=== PATIENT | male | born 1935 | race Caucasian/White ===

== ENCOUNTER 2018-03-29 22:05 | Inpatient (IN) | payer OTHER ==
[~2018-03-29] VITALS: Ht 172.7 cm; Wt 83.6 kg
--- NOTE | 2018-03-29 22:05 | NUR ---
Note harley in [facility] - 03/29/18 at [email or web address] Placed in room 06 . Placed on processes chemical design engineer, blood pressure machine and pulse oximeter. To gown for exam. Side rails up.
--- NOTE | 2018-03-29 22:05 | NUR ---
Placed in room 06 . Placed on miniature set designer, blood pressure machine and pulse oximeter. To gown for exam. Side rails up.
--- NOTE | 2018-03-29 22:06 | NUR ---
Pt GCS 3 BIB ALS from [facility] home s/p c/o altered mental status. Last known well time 2099. Arrived with #18 guage to L FA with 500 NS fluid administering. Was given 2 mg Narcan en route. Pinpoint pupils, skin pink dry and warm. No other injuries/complaints noted.
--- NOTE | 2018-03-29 22:07 | NUR ---
JAMEY Rosenthal at bedside examining patient.
--- NOTE | 2018-03-29 22:10 | NUR ---
# 16 FR Akers catheter with use of sterile technique. Immediate return of 100 cc red tinged urine noted. Bedside drainage bag placed below level of bladder. Urine sample collected and sent to lab. Pt did not respond to painful stimuli. Patient unable to toilet self.
--- NOTE | 2018-03-29 22:10 | NUR ---
# 18 gauge angiocath placed to R FA. Use of asceptic technique. Opsite placed over site. Blood return noted. Blood for lab drawn from site. Flushed with 10 cc of normal saline. No evidence of infiltration noted. Patient tolerated well.
[2018-03-29 22:11] VITALS: BP_SYST 198
--- NOTE | 2018-03-29 22:12 | NUR ---
EKG done at bedside
[2018-03-29] MEDS ORDERED: NS 1000 ML IV.SOLN IV ONE (22:15)
[2018-03-29] MEDS ORDERED: ONDANSETRON HCL 4 MG/2 ML VIAL IVP ONE (22:15)
--- NOTE | 2018-03-29 22:18 | NUR ---
# 16 FR Akers catheter with use of sterile technique. Immediate return of 20 cc red urine noted. Bedside drainage bag placed below level of bladder. Pt tolerated procedure well. Patient unable to toilet self.
--- NOTE | 2018-03-29 22:20 | NUR ---
Pt responding to verbal stimuli, slowly answering questions. AAOx2. Spontaneous eye opening.
[2018-03-29] MEDS ORDERED: COM200 PO (22:23)
[2018-03-29] MEDS ORDERED: FENO145T PO (22:25)
[2018-03-29] MEDS ORDERED: NPH,100V2 SQ (22:26)
--- NOTE | 2018-03-29 22:26 | NUR ---
Pt taken to radiology via gurney on portable registered nurse cardiac. Escorted by Yashira ASHTON.
[2018-03-29] MEDS ORDERED: METF1000 PO (22:28)
[2018-03-29] MEDS ORDERED: LOSA1TAB43 PO (22:28)
[2018-03-29] MEDS ORDERED: OMEG10006 PO (22:29)
[2018-03-29] MEDS ORDERED: OMEP20CA10 PO (22:31)
[2018-03-29] MEDS ORDERED: COLL30OI2 TP (22:32)
[2018-03-29] MEDS ORDERED: ASPI-1155 PO (22:34)
[2018-03-29] MEDS ORDERED: CHOL500013 PO (22:34)
[2018-03-29 22:35] LABS: BASOPHILS % (AUTO) 0.2 % (0.0-2.0); EOSINOPHILS # (AUTO) 0.1 K/uL (0.0-0.4); EOSINOPHILS % (AUTO) 2.5 % (0.0-4.0); HEMATOCRIT 39.9 % (36-54); HEMOGLOBIN 13.5 g/dL (14.0-18.0); LYMPHOCYTES % (AUTO) 34.5 % (20.5-51.5); MEAN CORPUSCULAR HEMOGLOBIN 32 pg (27-31); MEAN CORPUSCULAR HGB CONC 34 % (32-36); MEAN CORPUSCULAR VOLUME 93 fL (79.0-98.0); MONOCYTES # (AUTO) 0.4 K/uL (0.0-1.0); MONOCYTES % (AUTO) 6.1 % (1.7-9.3); NEUTROPHILS # (AUTO) 3.2 K/uL (1.8-7.7); NEUTROPHILS % (AUTO) 56.7 % (40.0-70.0); PLATELET COUNT (AUTO) 150 K/uL (130-430); RED BLOOD CELL COUNT(AUTO) 4.28 MIL/uL (4.2-6.2); RED CELL DISTRIBUTION WIDTH 14.8 % (9.0-15.0); WHITE BLOOD COUNT (AUTO) 5.7 K/uL (4.8-10.8)
--- NOTE | 2018-03-29 22:35 | NUR ---
Medication reconciliation completed with information provided by facility. Any prior medication reconciliation on file was reviewed and corrected.
[2018-03-29] MEDS ORDERED: BETA45CR3 TP (22:36)
[2018-03-29] MEDS ORDERED: CARB-62 PO (22:37)
[2018-03-29] MEDS ORDERED: CELE200C PO (22:38)
[2018-03-29] MEDS ORDERED: MULT-1164 PO (22:39)
[2018-03-29] MEDS ORDERED: DOCU-144 PO (22:40)
[2018-03-29] MEDS ORDERED: POTA-88 PO (22:41)
[2018-03-29 22:44] LABS: ANION GAP 12 (5-15); CALCIUM 9.4 mg/dL (8.4-11.0); CHLORIDE 101 mmol/L (98-107); CREATININE 1.02 mg/dL (0.55-1.30); GLUCOSE 146 mg/dL (70-99); POTASSIUM 3.2 mmol/L (3.5-5.1); SODIUM SERUM 141 mmol/L (136-145); UREA NITROGEN, BLOOD 17 mg/dL (8-21)
[2018-03-29 22:47] LABS: INR 1.1 (0.80-1.20); PROTHROMBIN TIME 10.9 SECS (9.5-12.5)
--- NOTE | 2018-03-29 22:49 | NUR ---
GCS reassessment 15;
[2018-03-29 22:50] LABS: BILIRUBIN,URINE NEGATIVE (NEGATIVE); BLOOD, URINE 3+ (NEGATIVE); CLARITY/URINE SL CLOUDY (CLEAR); COLOR,URINE YELLOW (YELLOW); GLUCOSE,URINE NEGATIVE (NEGATIVE); KETONES,URINE TRACE (NEGATIVE); LEUKOCYTE ESTERASE ,URINE NEGATIVE (NEGATIVE); NITRITE, URINE NEGATIVE (NEGATIVE); PROTEIN URINE NEGATIVE (NEGATIVE)
[2018-03-29 22:52] LABS: BACTERIA,URINE FEW /HPF (None Seen); RBC,URINE >100 /HPF (0-3); WBC,URINE 0-3 /HPF (0-3)
[2018-03-29 22:54] LABS: ALANINE AMINOTRANSFERASE 17 U/L (12-78); ALBUMIN 3.3 g/dL (3.4-4.8); ASPARTATE AMINOTRANSFERASE 28 U/L (10-37); TOTAL BILIRUBIN 0.5 mg/dL (0.0-1.0)
[2018-03-29 22:55] LABS: ACETAMINOPHEN < 1 ug/mL (1-30)
[2018-03-29] MEDS ORDERED: KCL 20 mEq in 100 mL (PREMIX) 100 ML IV ONE (23:00)
[2018-03-29] MEDS ORDERED: hydrALAZINE HCL 20 MG/ML VIAL IVP ONE (23:00)
[2018-03-29 23:02] LABS: BARBITURATE, URINE NEGATIVE (NEG <=200); BENZODIAZEPINE, URINE NEGATIVE (NEG <=150); CANNABINOID, URINE NEGATIVE (NEG <=50); COCAINE, URINE NEGATIVE (NEG <=150); METHAMPHETAMINES SCREEN,URINE NEGATIVE (NEG <=500); OPIATE, URINE NEGATIVE (NEG <=100); PHENCYCLIDINE SCREEN,URINE NEGATIVE (NEG <=25); UR TRICYCLIC ANTIDEPRESSANTS NEGATIVE (NEG <=300); URINE AMPHETAMINE NEGATIVE (NEG <=500); URINE METHADONE NEGATIVE (NEG <=200); URINE OXYCODONE SCREEN NEGATIVE (NEG <=100); URINE PROPOXYPHENE SCREEN NEGATIVE (NEG <=300)
--- NOTE | 2018-03-29 23:08 | NUR ---
Medication administered. Pt tolerated well. No adverse reactions noted.
--- NOTE | 2018-03-29 23:37 | NUR ---
Care endorsed to Grady ASHTON
--- NOTE | 2018-03-29 23:45 | NUR ---
Assumed care of patient, patient resting quietly in no acute distress, vital signs stable, respirations even and unlabored, skin warm and dry to touch. IV fluids infusing without difficulty, no redness or swelling noted at site, Patient remains in sinus rhythm on cafeteria monitor. Awaiting dispo, will continue to observe and assess.
--- NOTE | 2018-03-30 00:15 | NUR ---
Assessment remains unchanged.
[2018-03-30] MEDS ORDERED: INSULIN REGULAR, HUMAN 100 UNITS/ML, 10 ML VIAL (novoLIN R) SUBCUT PRN (00:45)
--- NOTE | 2018-03-30 00:45 | NUR ---
Patient will be admitted to care of Dr Beckwith. Admitted to tele unit. Will go to room 121-A. Belongings list completed. Summary report printed. Report will be given at bedside.
--- NOTE | 2018-03-30 00:49 | NUR ---
Transfer to tele room 121-A via ACLS protocol. Licensed nurse present. IV present no signs or symptoms of infiltration.
--- NOTE | 2018-03-30 00:50 | NUR ---
Emptied 1275 ml of urine from cullen catheter drainage. Patient resting quietly in no acute distress, vital signs stable, respirations even and unlabored.
--- NOTE | 2018-03-30 01:08 | NUR ---
ADMISSION: The patient, LYNDA BAER, 82 y/o, M admitted by LARRY SEYMOUR MD, with the diagnosis of ALOC, Hypokalemia ,was given written information regarding hospital policies, unit procedures and contact persons.
--- NOTE | 2018-03-30 01:15 | NUR ---
Initial Note Patient arrived via gurney per Resource nurse. Patient is awake, alert but forgetful and confused. Knows his birthday but unable to fully express his needs. Reorient to time, place and use of call light. No SOB noted. Denies any pain or n/v at this time. 2 saline locks. Skin intact and no peripheral edema noted. F/C intact and draining well with hernan colored urine. Needs attended. Able to drink water without any coughing. Care and monitoring will be provided. Call light within reach. Bed alarm on and at lowest position at all times. Kept warm and comfortable. Will notify MD of Lactic acid results of 3.1 & 3.2 and high BP. Will recheck BP. NSR on monitor.
[2018-03-30 01:21] VITALS: BP_SYST 165
--- NOTE | 2018-03-30 02:50 | NUR ---
paged Paged Dr. Beckwith, awaiting call back.
[2018-03-30 03:30] VITALS: BP_SYST 153
--- NOTE | 2018-03-30 03:45 | NUR ---
RN Note Patient arousable. No complaints. Rechecked BP 153/78, HR 85. Repositioned. Kept warm and comfortable.
--- NOTE | 2018-03-30 03:55 | NUR ---
PAGED PAGED DOCTOR SEYMOUR.
--- NOTE | 2018-03-30 04:37 | NUR ---
OMAR ESCOBAR PAGED DR. SEYMOUR FOR ORDERS.
--- NOTE | 2018-03-30 04:50 | NUR ---
called back Dr. Beckwith called back with orders made, carried out. Requested IVF, repeat lactic acid and DVT prophylaxis but no orders given. BC x 2 and urine culture was done in ER.
[2018-03-30] MEDS ORDERED: ACETAMINOPHEN 325 MG TABLET PO PRN (05:00)
--- NOTE | 2018-03-30 06:29 | NUR ---
End Note Afebrile. VS stable. Latest BP was 153/78. No complain of pain, SOB or n/v throughout the night. Bedrest but able to help on turning. Saline lock. AM labs today. Latest blood sugar was 100, given crackers per patient's request. Patient remembers that he is in [facility]. F/C intact and draining well. No BM. Repositioned. Follow up DVT prophylaxis and medication reconciliation. Care and monitoring provided per protocol. Call light within reach. Kept warm and comfortable. Bed alarm on and at lowest position at all times. Needs attended. Fall and skin precautions observed. Sinus rhythm with 1st degree AV block on monitor.
[2018-03-30 07:03] LABS: BASOPHILS % (AUTO) 0.3 % (0.0-2.0); EOSINOPHILS # (AUTO) 0.1 K/uL (0.0-0.4); EOSINOPHILS % (AUTO) 1.9 % (0.0-4.0); HEMATOCRIT 38.4 % (36-54); HEMOGLOBIN 12.8 g/dL (14.0-18.0); LYMPHOCYTES # (AUTO) 1.7 K/uL (1.0-5.5); LYMPHOCYTES % (AUTO) 22.5 % (20.5-51.5); MEAN CORPUSCULAR HEMOGLOBIN 31 pg (27-31); MEAN CORPUSCULAR HGB CONC 33 % (32-36); MEAN CORPUSCULAR VOLUME 93 fL (79.0-98.0); MONOCYTES # (AUTO) 0.5 K/uL (0.0-1.0); MONOCYTES % (AUTO) 6.4 % (1.7-9.3); NEUTROPHILS # (AUTO) 5.1 K/uL (1.8-7.7); NEUTROPHILS % (AUTO) 68.9 % (40.0-70.0); PLATELET COUNT (AUTO) 141 K/uL (130-430); RED BLOOD CELL COUNT(AUTO) 4.13 MIL/uL (4.2-6.2); RED CELL DISTRIBUTION WIDTH 14.9 % (9.0-15.0); WHITE BLOOD COUNT (AUTO) 7.4 K/uL (4.8-10.8)
[2018-03-30 07:25] LABS: ANION GAP 7 (5-15); CALCIUM 8.2 mg/dL (8.4-11.0); CHLORIDE 103 mmol/L (98-107); CREATININE 0.62 mg/dL (0.55-1.30); GLUCOSE 83 mg/dL (70-99); SODIUM SERUM 139 mmol/L (136-145); UREA NITROGEN, BLOOD 11 mg/dL (8-21)
[2018-03-30 07:30] LABS: POTASSIUM 2.9 mmol/L (3.5-5.1)
--- NOTE | 2018-03-30 07:32 | NUR ---
Paged DR. Beckwith for critical lab result K 2.9
--- NOTE | 2018-03-30 07:51 | NUR ---
RN OPENING NOTE Report was endorsed by night nurse. Patient is awake and alert with confusion. Patient shows no signs of any distress, breathing is equal and non labored. Patient has all safety precautions in place. Call light is with patient educated to use for assistance but patient is confused. Patient is eating breakfast in bed. Patient is close to nurses station. Patient is stable at this time. Will continue to monitor.
[2018-03-30] MEDS ORDERED: POTASSIUM CHLORIDE 20 MEQ TAB.PRT.SR PO ONE ×2 (08:00→12:15)
[2018-03-30 08:09] VITALS: BP_SYST 138
[2018-03-30] MEDS: CARBIDOPA/LEVODOPA 25/250 MG TABLET PO SCH ×4 (08:50→20:56)
[2018-03-30] MEDS: HYDROCHLOROTHIAZIDE 12.5 MG CAPSULE (HCTZ) PO SCH (08:50)
[2018-03-30] MEDS: LOSARTAN POTASSIUM 50 MG TABLET (COZAAR) PO SCH (08:50)
--- NOTE | 2018-03-30 08:50 | NUR ---
CONSULTATION PAGED/CALLED Reason for Consultation: AMS,PD Person Who was Notified: SPOKE WITH KARISHMA FROM [employer] Consulting Physician: String Cutter Specialty: NEUROLOGY Ordering Physician:
[2018-03-30] MEDS: ASPIRIN 81 MG TAB.CHEW PO SCH (08:51)
[2018-03-30] MEDS: OMEPRAZOLE 20 MG CAPSULE.DR (PriLOSEC) PO SCH (08:51)
[2018-03-30] MEDS: COMTAN 200 MG TAB PO SCH ×4 (08:53→20:57)
[2018-03-30] MEDS ORDERED: NON-FORMULARY MEDICATION (Losartan/Hctz* (Losartan-Hctz 100-12.5 Mg Tab*) 1 EACH) PO SCH (09:00)
--- NOTE | 2018-03-30 10:00 | NUR ---
Notes In bed, resting. family at bedside. denies any pain or chest pain. renal ultrasound just done. turned and repositioned. no distress noted.
--- NOTE | 2018-03-30 10:21 | NUR ---
Nutrition Update Osbaldo Scale 15 noted. Pt admitted for altered mental status, hypokalemia. Diet: [facility] BMI: 28 kg/m2 RD to follow per nutrition care standards.
--- NOTE | 2018-03-30 11:51 | NUR ---
Notes Sitting in the chair at this time, awake and alert. family at bedside. denies any pain or discomfort. no distress noted.
[2018-03-30] MEDS ORDERED: MAGNESIUM OXIDE 400 MG TABLET PO ONE (12:15)
[2018-03-30 12:18] VITALS: BP_SYST 131
--- NOTE | 2018-03-30 14:04 | NUR ---
Notes- Resting in bed, watching tv. denies any pain or discomfort. no distress noted. Able to swallow pills.
--- NOTE | 2018-03-30 15:10 | NUR ---
OSBALDO SCALE EVALUATION: Patient evaluated for a low Osbaldo score of 15. Patient was awake, alert, confused, and received in a Amelia bed. Patient is unable to turn independently. Skin is fair (-); Buttocks (Ischial Tuberosity areas) have blanchable erythema, present on admission. Recommend reposition patient side to side only every 2 hours with pillow support and off-load pressure areas with pillows for pressure re-distribution. Elevate, off-load and float bilateral heels with pillows. Use moisture barrier cream on buttocks and other moisture susceptible areas QID and as needed for soiling. Perform skin care and monitor skin integrity Q shift.
--- NOTE | 2018-03-30 16:16 | NUR ---
Notes Resting in bed, breathing even and unlabored. denies any pain. Able to make needs known. safety precaution observed. will continue to monitor.
[2018-03-30 16:19] VITALS: BP_SYST 149; BP_SYST 158
[2018-03-30] MEDS: INSULIN ASPART 100 UNITS/ML, 10 ML VIAL (NovoLOG) SUBCUT PRN ×2 (17:08→21:05)
--- NOTE | 2018-03-30 17:23 | NUR ---
Notes- Pt refused insulin sliding scale at this time.
--- NOTE | 2018-03-30 18:27 | NUR ---
notes- In bed, just done eating dinner. needs some assistance in feeding. denies any pain or discomfort. no distress noted. safety precaution observed. bed alarm on. will endorse.
--- NOTE | 2018-03-30 19:40 | NUR ---
ROUNDS PATIENT RESTING COMFORTABLY IN BED, NOT IN DISTRESS, VITALS STABLE, DENIES ANY PAIN AND DISCOMFORT AT THIS TIME. ASSESSMENT DONE AND DOCUMENTED. SEE FLOWSHEET. NEEDS ATTENDED TO. TURNED AND REPOSITIONED AND MADE COMFORTABLE. SAFETY AND FALL PRECAUTION MEASURES IN PLACED. BED IN LOW AND LOCKED POSITION. BED ALARM ON. CALL LIGHT PLACED WITHIN REACH.
[2018-03-30] MEDS: DOCUSATE SODIUM 100 MG CAPSULE PO SCH (20:55)
[2018-03-30] MEDS: MAGNESIUM OXIDE 400 MG TABLET PO SCH (20:56)
--- NOTE | 2018-03-30 21:10 | NUR ---
ACCU CHECK ACCU CHECK DONE, BLOOD SUGAR 176 WITH 2 UNITS NOVOLOG GIVEN SUBCU PER SLIDING SCALE. WILL CONTINUE TO MONITOR.
[2018-03-31 00:02] VITALS: BP_SYST 152
--- NOTE | 2018-03-31 00:12 | NUR ---
PATIENT RESTING: Patient resting quietly. No acute distress noted. Vital signs within normal range.
--- NOTE | 2018-03-31 02:15 | NUR ---
ROUNDS PATIENT ASLEEP, NOT IN DISTRESS, VITALS STABLE. WILL CONTINUE TO MONITOR.
--- NOTE | 2018-03-31 04:13 | NUR ---
PATIENT RESTING: Patient resting quietly. No acute distress noted. Vital signs within normal range.
[2018-03-31] MEDS: INSULIN ASPART 100 UNITS/ML, 10 ML VIAL (NovoLOG) SUBCUT PRN ×3 (05:39→18:04)
--- NOTE | 2018-03-31 06:51 | NUR ---
CLOSING NOTES PATIENT AWAKE, VITALS STABLE, NO PAIN AT THIS TIME. ACCU CHECK DONE, BLOOD SUGAR 238 WITH 4 UNITS NOVOLOG GIVEN PER SLIDING SCALE. ALL NEEDS ATTENDED TO. BED ALARM ON. CALL LIGHT PLACED WITHIN REACH.
[2018-03-31 07:07] LABS: ANION GAP 9 (5-15); CHLORIDE 100 mmol/L (98-107); CREATININE 0.77 mg/dL (0.55-1.30); GLUCOSE 195 mg/dL (70-99); SODIUM SERUM 138 mmol/L (136-145); UREA NITROGEN, BLOOD 9 mg/dL (8-21)
[2018-03-31 07:57] LABS: POTASSIUM 2.9 mmol/L (3.5-5.1)
--- NOTE | 2018-03-31 08:15 | NUR ---
INITIAL ROUNDS Received pt AAOx3, mumrock with his speech. Pt with no s/s resp distress, no c/o pain or discomfort. HOB elevated for aspiration precautions. Plan of care for the day reviewed with pt-pt stated okay, then that he wanted to go home today. Pain management, skin and safety discussed-pt just stated okay-reinforce all teachings. Pt repositioned with pillow support an heels off-loaded. Side rails up x3, bed alarm on, call light within reach.
[2018-03-31] MEDS ORDERED: POTASSIUM CHLORIDE 40 MEQ, LIDOCAINE JECT 2% PF 100 MG 50 MG in NS 250 ML IV ONE (08:45)
[2018-03-31 09:05] VITALS: BP_SYST 155
[2018-03-31] MEDS: CARBIDOPA/LEVODOPA 25/250 MG TABLET PO SCH ×4 (10:25→20:43)
[2018-03-31] MEDS: OMEPRAZOLE 20 MG CAPSULE.DR (PriLOSEC) PO SCH (10:28)
[2018-03-31] MEDS: LOSARTAN POTASSIUM 50 MG TABLET (COZAAR) PO SCH (10:29)
[2018-03-31] MEDS: ASPIRIN 81 MG TAB.CHEW PO SCH (10:30)
[2018-03-31] MEDS: MAGNESIUM OXIDE 400 MG TABLET PO SCH ×2 (10:30→20:43)
[2018-03-31] MEDS: HYDROCHLOROTHIAZIDE 12.5 MG CAPSULE (HCTZ) PO SCH (10:30)
[2018-03-31] MEDS: COMTAN 200 MG TAB PO SCH ×4 (10:31→21:30)
--- NOTE | 2018-03-31 10:35 | NUR ---
ROUNDS Pt assisted to bedside commode with 2 person assist-pt very stiff. Pt did not have a bowel movement and assisted back into bed. Cream applied to perineal area due to redness. No s/s resp distress, no c/o pain or discomfort. Family at bedside. All precautions remain in place. Call light within reach.
[2018-03-31 11:30] VITALS: BP_SYST 165
--- NOTE | 2018-03-31 12:09 | NUR ---
Case mgt: Met w/pt and dtr-in-law My at bedside-pt oriented to person, place-slightly cpfvxnxz-fuvgduh-qdyzbkj-c/o bladder discomfort (hematuria noted in cullen)-Lives at [facility]-uses w/c there and has assistance for ADLs.Has hospital bed,w/c & lift chair at [place]. My or Ab will take pt back to [place] upon dc--I explained in the event pt requires SNF instead of AL temporarily, we would need to see if [facility] is contracted with [facility] insurance, as pt possibly could need SNF elsewhere if [facility] not contracted with insurance. Explained case mgt will f/u for dc planning needs. Nurse Iris is aware of pt's c/o bladder discomfort and blood clots noted at proximal area of cullen catheter. YASMEEN ASHTON
--- NOTE | 2018-03-31 12:19 | NUR ---
ROUNDS Pt repositioned with pillow support and heels off-loaded for skin care. Pt with no s/s resp distress, no c/o pain or discomfort. K-Marcelino infusing well to left arm at ordered rate with no s/s infiltration to site. Pt's family at bedside. All precautions remain in place. Call light within reach.
[2018-03-31] MEDS ORDERED: LEVOFLOXACIN 500 MG/D5W 100 ML IV ONE (14:30)
--- NOTE | 2018-03-31 14:30 | NUR ---
ROUNDS/MD Rounded with Dr. Nettles to see pt-MD discussed plan of care with pt and pt's family. MD to place new orders for antibiotics, labs. Pt with no c/o pain or discomfort. K-rider completed. All precautions remain in place. Call light within reach. Addendum: 03/31/18 at 1710 by Iris Reyes RN Dr. Nettles informed/shown small blood clots in pt's cullen-stated he will order fluids, antibiotics, and a Urinary consult.
[2018-03-31] MEDS ORDERED: cefTRIAXone 1 GM in D5W 50 ML IV ONE (14:45)
[2018-03-31] MEDS ORDERED: POTASSIUM CHLORIDE 20 MEQ TAB.PRT.SR PO ONE (14:45)
[2018-03-31] MEDS: LR 1,000 ML IV SCH (16:03)
[2018-03-31 16:13] VITALS: BP_SYST 176
--- NOTE | 2018-03-31 16:45 | NUR ---
ROUNDS Pt assisted with 2 person assist to the bedside commode. No c/o pain, no s/s resp distress. sequencing machine operator at bedside. call light within reach.
--- NOTE | 2018-03-31 17:15 | NUR ---
CONSULTATION PAGED/CALLED Reason for Consultation: HEMATURIA Person Who was Notified: SPOKE WITH CONCHA FROM [employer] Consulting Physician: Hydraulics Teacher Specialty: UROLOGY Ordering Physician: DR TELLES
--- NOTE | 2018-03-31 19:01 | NUR ---
CLOSING NOTE Pt resting quietly in bed with no s/s resp distress, no c/o pain or discomfort. IVF infusing well to Left arm at ordered rate with no s/s infiltration to site. Akers draining to gravity with small blood clots and light red urine. Spopke with Dr. Cuevas-he will see pt in the morning-family and pt aware. Needs met. All precautions remain in place. Call light within reach.
--- NOTE | 2018-03-31 19:30 | NUR ---
ROUNDS PATIENT IN BED, AWAKE, ALERT, CONFUSED, NOT IN DISTRESS, VITALS STABLE. NO SIGNS OF ANY PAIN AT THIS TIME. ASSESSMENT DONE AND DOCUMENTED. SEE FLOWSHEET. NEEDS ATTENDED TO. SAFETY AND FALL PRECAUTION MEASURES IN PLACED. BED ALARM ON. CALL LIGHT PLACED WITHIN REACH.
[2018-03-31] MEDS: DOCUSATE SODIUM 100 MG CAPSULE PO SCH (20:43)
--- NOTE | 2018-03-31 21:13 | NUR ---
MEDICATION DUE MEDICATIONS GIVEN SCHEDULED, TOLERATED WELL. WILL CONTINUE TO MONITOR.
[2018-03-31] MEDS: POTASSIUM CHLORIDE 20 MEQ TAB.PRT.SR PO SCH (21:29)
[2018-03-31 23:56] VITALS: BP_SYST 129
--- NOTE | 2018-04-01 01:20 | NUR ---
DR. SEYMOUR PAGED AND TALKED TO DR. SEYMOUR, PATIENT AGITATED AND PULLING OUT HIS IV LINES AND ATTEMPTING TO PULL HIS VOGEL CATHETER. NEW ORDER FOR ATIVAN 0.5 MG IV GIVEN X1. WILL CONTINUE TO MONITOR.
[2018-04-01] MEDS ORDERED: LORazepam 2 MG/ML VIAL IVP SCH (01:45)
--- NOTE | 2018-04-01 04:12 | NUR ---
PATIENT RESTING: Patient resting quietly. No acute distress noted. Vital signs within normal range.
[2018-04-01] MEDS: INSULIN ASPART 100 UNITS/ML, 10 ML VIAL (NovoLOG) SUBCUT PRN ×2 (05:47→17:24)
--- NOTE | 2018-04-01 06:50 | NUR ---
CLOSING NOTES PATIENT ASLEEP, VITALS STABLE, NO PAIN AND DISCOMFORT NOTED. ALL NEEDS ATTENDED TO. SAFETY MEASURES MAINTAINED. CALL LIGHT PLACED WITHIN REACH.
--- NOTE | 2018-04-01 07:17 | NUR ---
OPENING NOTE: MORNING REPORT WAS TAKEN FROM POWER ENGINEER NURSE AT BEDSIDE. PATIENT IS RESTING IN BED. IV FLUIDS ARE INFUSING. PATIENT ON ROOM AIR. VOGEL HANGING TO GRAVITY. BED ALARM IS ON AND SIDE RAILS ARE UP. CALL LIGHT IS IN REACH AND BED IN LOWEST POSITION. WILL CONTINUE TO MONITOR.
[2018-04-01 07:29] LABS: BASOPHILS # (AUTO) 0.1 K/uL (0.0-0.2); EOSINOPHILS # (AUTO) 0.1 K/uL (0.0-0.4); EOSINOPHILS % (AUTO) 1.7 % (0.0-4.0); HEMATOCRIT 39.2 % (36-54); HEMOGLOBIN 13.1 g/dL (14.0-18.0); LYMPHOCYTES # (AUTO) 1.4 K/uL (1.0-5.5); LYMPHOCYTES % (AUTO) 19.3 % (20.5-51.5); MEAN CORPUSCULAR HEMOGLOBIN 31 pg (27-31); MEAN CORPUSCULAR HGB CONC 33 % (32-36); MEAN CORPUSCULAR VOLUME 92 fL (79.0-98.0); MONOCYTES # (AUTO) 0.5 K/uL (0.0-1.0); MONOCYTES % (AUTO) 6.2 % (1.7-9.3); NEUTROPHILS # (AUTO) 5.4 K/uL (1.8-7.7); NEUTROPHILS % (AUTO) 71.8 % (40.0-70.0); PLATELET COUNT (AUTO) 143 K/uL (130-430); RED BLOOD CELL COUNT(AUTO) 4.25 MIL/uL (4.2-6.2); RED CELL DISTRIBUTION WIDTH 14.9 % (9.0-15.0); WHITE BLOOD COUNT (AUTO) 7.5 K/uL (4.8-10.8)
[2018-04-01 07:35] LABS: ANION GAP 7 (5-15); CHLORIDE 105 mmol/L (98-107); CREATININE 0.82 mg/dL (0.55-1.30); GLUCOSE 157 mg/dL (70-99); POTASSIUM 3.3 mmol/L (3.5-5.1); SODIUM SERUM 142 mmol/L (136-145); UREA NITROGEN, BLOOD 10 mg/dL (8-21)
[2018-04-01 08:30] VITALS: BP_SYST 110
[2018-04-01] MEDS: COMTAN 200 MG TAB PO SCH ×4 (09:00→22:08)
[2018-04-01] MEDS: POTASSIUM CHLORIDE 20 MEQ TAB.PRT.SR PO SCH ×2 (09:00→22:05)
[2018-04-01] MEDS: LOSARTAN POTASSIUM 50 MG TABLET (COZAAR) PO SCH (09:00)
[2018-04-01] MEDS ORDERED: POTASSIUM CHLORIDE 20 MEQ TAB.PRT.SR PO ONE (09:00)
[2018-04-01] MEDS: HYDROCHLOROTHIAZIDE 12.5 MG CAPSULE (HCTZ) PO SCH (09:00)
[2018-04-01] MEDS: CARBIDOPA/LEVODOPA 25/250 MG TABLET PO SCH ×4 (09:00→22:05)
[2018-04-01] MEDS: MAGNESIUM OXIDE 400 MG TABLET PO SCH ×2 (09:00→22:05)
[2018-04-01] MEDS: OMEPRAZOLE 20 MG CAPSULE.DR (PriLOSEC) PO SCH (09:00)
[2018-04-01] MEDS: ASPIRIN 81 MG TAB.CHEW PO SCH (09:00)
[2018-04-01] MEDS: LR 1,000 ML IV SCH ×2 (09:45→23:41)
[2018-04-01] MEDS: cefTRIAXone 1 GM in D5W 50 ML IV SCH (09:46)
--- NOTE | 2018-04-01 09:50 | NUR ---
MORNING MEDS: PATIENT LETHARGIC. PATIENT OPENS EYES FOR A BIT THEN CLOSES THEM. NOT SAFE TO GIVE PATIENT PO MEDS. FLUIDS ARE INFUSING AND CALL LIGHT IS IN REACH. WILL CONTINUE TO MONITOR.
--- NOTE | 2018-04-01 11:25 | NUR ---
BLOOD SUGAR: PATIENT LAYING IN BED WITH NO SIGNS OF DISTRESS. PATIENT STILL LETHARGIC. PATIENT OPENS EYES THEN GOES BACK TO SLEEP. SUGAR WAS TAKEN AND WAS 144. NO INSULIN NEEDED TO COVER. CALL LIGHT IS IN REACH. WILL CONTINUE TO MONITOR.
--- NOTE | 2018-04-01 12:29 | NUR ---
MD: DR SEYMOUR CAME TO SEE PATIENT. PATIENT STILL LETHARGIC. DR AWARE THAT NOT ABLE TO GIVE MORNING MEDS. WILL CONTINUE TO MONITOR.
[2018-04-01] MEDS ORDERED: POTASSIUM CHLORIDE 30 MEQ in NS 250 ML IV ONE (12:30)
[2018-04-01 12:47] VITALS: BP_SYST 140
--- NOTE | 2018-04-01 13:14 | NUR ---
: DR SEYMOUR CALLED TO CLARIFY DISCHARGE PLANNING ORDER. SAID THEY WILL SEE TOMORROW HOW PATIENT DOES WITH PT AND DECIDED IF PATIENT TO GO BACK TO ASSISTED LIVING OR SNF.
--- NOTE | 2018-04-01 13:15 | NUR ---
DC planning: Rec'd order for transfer to SNF in am-Nurse Portillo is checking w/Dr. Beckwith to confirm level of care for AL vs. SNF-Pt is more lethargic today and still has cullen-urology consult pending--urine is clear hernan today--I am faxing snf referral packet to [facility] fax#[phone] and made nurse Lindsey aware I am faxing SNF referral. YASMEEN RN
--- NOTE | 2018-04-01 14:44 | NUR ---
NOTE: PATIENT MORE AWAKE. FAMILY AT BEDSIDE FEEDING PATIENT LUNCH. GAVE PATIENT SCHEDULED MEDICATIONS. PATIENT SWALLOWED WITH OUT DIFFICULTIES. ALL NEEDS MET. CALL LIGHT IS IN REACH. WILL CONTINUE TO MONITOR.
--- NOTE | 2018-04-01 15:44 | NUR ---
URINE SENT FOR CYTOLOGY
[2018-04-01 16:44] VITALS: BP_SYST 149
--- NOTE | 2018-04-01 17:28 | NUR ---
NOTE: BLOOD SUGAR WAS TAKEN AND WAS 162. INSULIN GIVEN TO COVER. PATIENT LETHARGIC BUT OPENS EYES TO VOICE. FAMILY SAID TO GIVE PO MEDS LATER WITH DINNER. WILL CONTINUE TO MONITOR. CALL LIGHT IS IN REACH.
--- NOTE | 2018-04-01 18:22 | NUR ---
CLOSING NOTE: PATIENT LAYING IN BED RESTING WITH EYES CLOSED WITH NO SIGNS OF DISTRESS. PATIENT ON ROOM AIR. FLUIDS ARE INFUSING. PATIENT OPENED EYES TO VOICE. PATIENT ATE SOME DINNER. GAVE SCHEDULED MEDICATIONS. PATIENT SWALLOWED WITH OUT DIFFICULTIES. VISITOR AT BEDSIDE. BED ALARM IS ON AND CALL LIGHT IS IN REACH. WILL CONTINUE TO MONITOR AND GIVE REPORT TO MANAGER MEMBERSHIP NURSE.
[2018-04-01 19:00] VITALS: BP_SYST 161
[2018-04-01 20:00] VITALS: BP_SYST 161
[2018-04-01] MEDS: DOCUSATE SODIUM 100 MG CAPSULE PO SCH (22:04)
[2018-04-01] MEDS: cloNIDine HCL 0.1 MG TABLET PO PRN (22:15)
[2018-04-02 00:09] VITALS: BP_SYST 172
[2018-04-02 01:00] VITALS: BP_SYST 153
[2018-04-02] MEDS: LR 1,000 ML IV SCH (06:09)
[2018-04-02 06:20] LABS: ANION GAP 9 (5-15); CALCIUM 8.8 mg/dL (8.4-11.0); CHLORIDE 107 mmol/L (98-107); CREATININE 0.86 mg/dL (0.55-1.30); GLUCOSE 182 mg/dL (70-99); POTASSIUM 3.6 mmol/L (3.5-5.1); SODIUM SERUM 144 mmol/L (136-145); UREA NITROGEN, BLOOD 13 mg/dL (8-21)
--- NOTE | 2018-04-02 06:45 | NUR ---
pt.had presented challenges;w/in the shift.pt.presents hx;medical;parkinson's dx.advanced.pt.presents general weakness upper/lower extremities.pt.presents cullen catheter;hematuria presents.;urology was consulted . had assessed the pt:04/01/18. had written that the pt.should f/u w/ cystoscopy as a n out/pt.pt.presents diabetic hx.i have assessed the blood glucose x2 w/in the shift,.pt.had requested snacks throughout the shift.i fed the pt.3-5x's w/in the shift.pt.was assessed for cleanliness.pt.was re-positioned q-2hrs.water provided.no c/o pain,nausea.pt.had attempted to pull the cullen catheter. pt.reminded of the indication for the cullen catheter.
--- NOTE | 2018-04-02 07:40 | NUR ---
RN opening note report was endorsed by night nurse at bed side. Patient is awake and alert sitting in chair next to bed. Patient has no complaints at this time. Patients breathing is equal and non labored. Patient has all safety precautions in place. Patient educated immigration case manager light for assistance. Patient is NPO for abdominal U/S , spoke with radiology will be doing U/S in 20 min. Patient has no other needs at this time. will continue to monitor.
[2018-04-02 08:10] VITALS: BP_SYST 171
[2018-04-02] MEDS: cefTRIAXone 1 GM in D5W 50 ML IV SCH (08:15)
[2018-04-02] MEDS: HYDROCHLOROTHIAZIDE 12.5 MG CAPSULE (HCTZ) PO SCH (08:16)
[2018-04-02] MEDS: ASPIRIN 81 MG TAB.CHEW PO SCH (08:16)
[2018-04-02] MEDS: POTASSIUM CHLORIDE 20 MEQ TAB.PRT.SR PO SCH (08:16)
[2018-04-02] MEDS: MAGNESIUM OXIDE 400 MG TABLET PO SCH (08:17)
[2018-04-02] MEDS: COMTAN 200 MG TAB PO SCH ×3 (08:17→17:41)
[2018-04-02] MEDS: OMEPRAZOLE 20 MG CAPSULE.DR (PriLOSEC) PO SCH (08:17)
[2018-04-02] MEDS: LOSARTAN POTASSIUM 50 MG TABLET (COZAAR) PO SCH (08:17)
[2018-04-02] MEDS: CARBIDOPA/LEVODOPA 25/250 MG TABLET PO SCH ×3 (08:51→17:40)
--- NOTE | 2018-04-02 09:30 | NUR ---
rn ROUNDING/BP Patient is awake and alert. laying in bed no signs of any distress, breathing is equal and non labored. Patient Akers catheter bag is leaking changed bag to a new one. Patient grant no complaints of any pain at this time. Patients bp has decreased will continue to monitor. Patient is close to nurses station. no other needs at this time. will continue to monitor.
--- NOTE | 2018-04-02 11:06 | NUR ---
Discharge Planning: DCP followed up on referral to [facility] (f [phone] p [phone]); Mercedes stated she will get authorization from insurance and call with a bed. DIMPLEP to follow up. Addendum: 04/02/18 at 1351 by Briana Pierre DP Mercedes at [facility] (f [phone] p [phone]) pt accepted to 110. Addendum: 04/02/18 at 1356 by Briana Pierre DP DEBBIE made nurse aware of pt being accepted to [facility] (f [phone] p [phone]). Addendum: 04/02/18 at 1512 by Briana Pierre DP DIMPLE laverne [facility] ([phone]) Km to [facility] (f [phone] p [phone]) RM 110
[2018-04-02 11:31] VITALS: BP_SYST 160
--- NOTE | 2018-04-02 11:55 | NUR ---
consent/contrast administration questionnaire Patients daughter in law at bed side.able to get informed consent from her. She has no further questions regarding consent. Patient is awake and alert. Patient has no complaints at this time. All safety precautions are in place. Patient is close to nurses station. Spoke with Radiology will be doing CT at after lunch ok to give insulin and lunch now. Patient and family member made aware. no further questions
[2018-04-02] MEDS: INSULIN ASPART 100 UNITS/ML, 10 ML VIAL (NovoLOG) SUBCUT PRN ×2 (12:26→17:46)
--- NOTE | 2018-04-02 13:30 | NUR ---
rn erica Patient moved to 121 [address] Bed. Daughter in law is still at bed side. Patient is awake and alert, no signs of any distress, breathing is equal and non labored. Patient has all safety precautions in place. Educated family and patient sunday school missionary light for assistance. Patient has no complaints at this time. Patient is stable. Patient is close to nurses station. will continue to monitor.
[2018-04-02] MEDS ORDERED: IOHEXOL 100 ML IV ONE (14:17)
--- NOTE | 2018-04-02 15:30 | NUR ---
RN ROUNDING PATIENT IS AWAKE AND ALERT, LAYING IN BED NO SIGNS OF ANY DISTRESS, BREATHING IS EQUAL AND NON LABORED. PATIENT HAS ALL SAFETY PRECAUTIONS IN PLACE. PATIENT IS CLOSE TO NURSES STATION. PATIENT HAS NO OTHER NEEDS AT THIS TIME. WILL CONTINUE TO MONITOR.
[2018-04-02 15:57] VITALS: BP_SYST 161
--- NOTE | 2018-04-02 17:55 | NUR ---
MEDICATION PATIENTS SCHEDULE MEDICATION DONE PER ORDER. PATIENTS ACCU CHECK DONE COVERAGE GIVEN ORDERED. PATIENT IS EATING DINNER. DAUGHTER IN LAW IS AT BED SIDE. PATIENT TOLERATED MEDICATION WELL. BOTH PATIENT AND DAUGHTER IN LAW ARE AWARE OF TRANSFER BACK TO [place]. PATIENT HAS NO COMPLAINTS AT THIS TIME. PATIENT IS STABLE BREATHING IS EQUAL AN NON LABORED. PATIENT HAS NO OTHER NEEDS. PATIENT IS CLOSE TO NURSES STATION. WILL CONTINUE TO MONITOR.
[2018-04-02] MEDS: cloNIDine HCL 0.1 MG TABLET PO PRN (18:34)
--- NOTE | 2018-04-02 18:49 | NUR ---
rn closing note Report to be endorsed to night nurse at bed side. Patients blood pressure slightly elevated at 161/91 medicated per order. Patient tolerated well. patient has all safety precautions in place. Close to nurses station. Patient daughter in law with patient. Patient shows no signs of any distress, breathing is equal and non labored. no other needs at this time.
--- NOTE | 2018-04-02 19:45 | NUR ---
COMMUNICATION WITH FAMILY DAUGHTER IN LAW, KELLI IS AT BEDSIDE AT THIS TIME AND HAS SIGNED AND GIVEN CONSENT FOR PATIENT'S TRANSFER [facility] TO [facility] SINCE PATIENT IS CONFUSED. SHE VERBALIZES THAT SHE WILL TAKE ALL THE PATIENT'S BELONGINGS HOME WITH HER.
--- NOTE | 2018-04-02 19:58 | NUR ---
COMMUNICATION WITH [facility] NURSE REPORT GIVEN AT THIS TIME TO RN, BABATUNDE WHO WILL BE RECEIVING PATIENT IN ROOM 133. SHE VERBALIZES THAT THEY ARE READY TO RECEIVE PATIENT, AMBULANCE ETA IS GIVEN TO HER. RN ALSO PROVIDED WITH EMERGENCY CONTACT INFORMATION FOR PATIENT (KELLI, DAUGHTER IN LAW).
--- NOTE | 2018-04-02 20:38 | NUR ---
DISCHARGE NOTE PATIENT IS DISCHARGED AT THIS THIS TIME VIA GURNEY VIA [facility] BY EMT TRUPTI AND ANOTHER EMT. DAUGHTER IN LAW KELLI AND SON JAY JAY ARE AT BEDSIDE, THEY WILL BE TAKING HIS BELONGINGS WITH THEM HOME. PATIENT'S HOSPITAL WRIST BAND IS REMOVED, HE IS GIVEN A BLANK WRISTBAND WITH HIS NAME AND WRITTEN. PATIENT'S IV IS D/C, TIP INTACT, NO SIGNS OF ACTIVE BLEED. DISCHARGE PACKET HAS BEEN SIGNED AND DAUGHTER IN LAW KELLI HAS SIGNED AND GIVEN CONSENT FOR DISCHARGE. HE IS STABLE, NO SIGNS OF RESPIRATORY DISCHARGE. ALL NEEDS MET.
== END 2018-04-02 18:39 | DRG 640 ==
LOC: SED 22:05 → STU 03-30 00:33 → SMU 04-01 16:38
PROVIDERS: ADMIT Internal Medicine; ATTEND Internal Medicine
DX: E87.6 Hypokalemia (principal); G93.41 Metabolic encephalopathy; G45.9 Transient cerebral ischemic attack, unspecified; R31.0 Gross hematuria; E11.65 Type 2 diabetes mellitus with hyperglycemia; E78.5 Hyperlipidemia, unspecified; I10 Essential (primary) hypertension; R55 Syncope and collapse; E86.0 Dehydration; G20 Parkinson's disease; Z96.643 Presence of artificial hip joint, bilateral; F02.80 Dementia in other diseases classified elsewhere, unspecified severity, without behavioral disturbance, psychotic disturbance, mood disturbance, and anxiety; G30.9 Alzheimer's disease, unspecified; K21.9 Gastro-esophageal reflux disease without esophagitis; T42.4X5A Adverse effect of benzodiazepines, initial encounter; Z79.899 Other long term (current) drug therapy; Z85.46 Personal history of malignant neoplasm of prostate; Z79.82 Long term (current) use of aspirin; Y92.89 Other specified places as the place of occurrence of the external cause
CPT/HCPCS: 36415; 36600; 70450-TC; 71045; 76770; 80048; 80053; 80307; 81000-TC; 82550-TC; 82803-TC; 82962; 83605; 83735-TC; 83880; 84443-TC; 84484; 85025; 85610-TC; 85730-TC; 87040-TC; 87081; 87086; 88108; 88305; 93005; 96361; 96365; 96375; 97110-GP; 97530-GP; 99285; G0378; G0480; G0481; G0482; J0360; J0696; J1815; J1956; J2060; J2405; J3480; J7050; J7060; J7120; Q9967

== ENCOUNTER 2019-05-06 08:17 | Emergency (ER) | payer OTHER ==
[~2019-05-06] VITALS: Ht 172.7 cm; Wt 79.4 kg
[~2019-05-06 08:17] MED LIST: ASPI-1155 PO; CARB-62 PO; CELE200C PO; CHOL500013 PO; COLL30OI2 TP; COM200 PO; DOCU-144 PO; FENO145T PO; LOSA1TAB43 PO; METF1000 PO; MULT-1164 PO; OMEG10006 PO; OMEP20CA11 PO; POTA-88 PO
[2019-05-06 08:20] VITALS: BP_SYST 165
--- NOTE | 2019-05-06 08:30 | NUR ---
Patient to ER bed 7 to gown for evaluation. Side rails up. Report given to Priti ASHTON.
--- NOTE | 2019-05-06 09:10 | NUR ---
pt arrives from [facility] for c/o ALOC. pt is AAOx3. Chronic cullen dependent. Will continue to monitor
--- NOTE | 2019-05-06 09:15 | NUR ---
EKG done and given to
--- NOTE | 2019-05-06 09:20 | NUR ---
ER at bedside examining patient.
--- NOTE | 2019-05-06 09:30 | NUR ---
# 16 FR Cullen catheter with use of sterile technique. Immediate return of 50cc hernan urine noted. Bedside drainage bag placed below level of bladder. Urine sample collected and sent to lab. Pt tolerated procedure . Patient arrived with cullen in place, changed due to standard of practice prior to admission. Patient unable to toilet self.
[2019-05-06 09:37] LABS: BASOPHILS % (AUTO) 0.3 % (0.0-2.0); EOSINOPHILS # (AUTO) 0.1 K/uL (0.0-0.4); EOSINOPHILS % (AUTO) 2.4 % (0.0-4.0); HEMATOCRIT 36.3 % (36-54); HEMOGLOBIN 12.1 g/dL (14.0-18.0); LYMPHOCYTES # (AUTO) 1.4 K/uL (1.0-5.5); LYMPHOCYTES % (AUTO) 25.9 % (20.5-51.5); MEAN CORPUSCULAR HEMOGLOBIN 31 pg (27-31); MEAN CORPUSCULAR HGB CONC 34 % (32-36); MEAN CORPUSCULAR VOLUME 92 fL (79.0-98.0); MONOCYTES # (AUTO) 0.3 K/uL (0.0-1.0); MONOCYTES % (AUTO) 6.1 % (1.7-9.3); NEUTROPHILS # (AUTO) 3.5 K/uL (1.8-7.7); NEUTROPHILS % (AUTO) 65.3 % (40.0-70.0); PLATELET COUNT (AUTO) 163 K/uL (130-430); RED BLOOD CELL COUNT(AUTO) 3.93 MIL/uL (4.2-6.2); RED CELL DISTRIBUTION WIDTH 17.3 % (9.0-15.0); WHITE BLOOD COUNT (AUTO) 5.4 K/uL (4.8-10.8)
[2019-05-06 09:48] LABS: ANION GAP 4 (5-15); CALCIUM 8.8 mg/dL (8.4-11.0); CHLORIDE 101 mmol/L (98-107); CREATININE 0.62 mg/dL (0.55-1.30); GLUCOSE 124 mg/dL (70-99); POTASSIUM 3.3 mmol/L (3.5-5.1); SODIUM SERUM 139 mmol/L (136-145); UREA NITROGEN, BLOOD 13 mg/dL (8-21)
[2019-05-06 09:53] LABS: INR 1.1 (0.80-1.20); PROTHROMBIN TIME 10.7 SECS (9.5-12.5)
[2019-05-06 09:54] LABS: ALANINE AMINOTRANSFERASE 22 U/L (12-78); ALBUMIN 3.1 g/dL (3.4-4.8); ASPARTATE AMINOTRANSFERASE 24 U/L (10-37); TOTAL BILIRUBIN 0.7 mg/dL (0.0-1.0)
[2019-05-06 10:25] LABS: BILIRUBIN,URINE 1+ (NEGATIVE); BLOOD, URINE 3+ (NEGATIVE); CLARITY/URINE CLOUDY (CLEAR); COLOR,URINE YELLOW (YELLOW); GLUCOSE,URINE NEGATIVE (NEGATIVE); KETONES,URINE NEGATIVE (NEGATIVE); LEUKOCYTE ESTERASE ,URINE 3+ (NEGATIVE); NITRITE, URINE NEGATIVE (NEGATIVE); PH,URINE 7.5 (5.0-8.0); PROTEIN URINE 3+ (NEGATIVE)
--- NOTE | 2019-05-06 10:30 | NUR ---
pt is currently resting in bed
[2019-05-06 11:01] LABS: BACTERIA,URINE FEW /HPF (None Seen); RBC,URINE 20-50 /HPF (0-3); WBC,URINE >100 /HPF (0-3)
[2019-05-06] MEDS ORDERED: cefTRIAXone 1 GM in D5W 50 ML IV ONE (11:45)
--- NOTE | 2019-05-06 12:30 | NUR ---
[place] IVPB currently infusing per MD orders. Blood cx have been drawn.
[2019-05-06] MEDS ORDERED: cefTRIAXone 1 GM VIAL ONE (12:39)
[2019-05-06 13:05] VITALS: BP_SYST 169
--- NOTE | 2019-05-06 13:07 | NUR ---
Patient given written and verbal discharge instructions and verbalizes understanding. ER MD discussed with patient the results and treatment provided. Patient in stable condition. ID arm band removed. IV catheter removed intact and dressing applied, no active bleeding. Rx of Macrobid given. Patient educated on pain management and to follow up with PMD. Pain Scale 0/10. Opportunity for questions provided and answered. Medication side effect fact sheet provided.
== END 2019-05-06 13:05 ==
LOC: SED 08:17
DX: N39.0 Urinary tract infection, site not specified (principal); R41.82 Altered mental status, unspecified; E11.9 Type 2 diabetes mellitus without complications; I10 Essential (primary) hypertension; G20 Parkinson's disease; K21.9 Gastro-esophageal reflux disease without esophagitis; Z79.82 Long term (current) use of aspirin; Z79.899 Other long term (current) drug therapy; Z88.2 Allergy status to sulfonamides
CPT/HCPCS: 36415; 71045; 80053; 81000; 83605; 84484; 85025; 85610; 85730; 87086; 93005; 96365; 99285; J0696

== ENCOUNTER 2019-05-15 09:48 | Inpatient (IN) | payer OTHER ==
[~2019-05-15] VITALS: Ht 175.3 cm; Wt 69.4 kg
[2019-05-15 09:48] VITALS: BP_SYST 148
--- NOTE | 2019-05-15 09:48 | NUR ---
BROUGHT IN BY [facility], PLACED IN BED #1 AND TRIAGED. REPORT GIVEN TO VALENTINO
--- NOTE | 2019-05-15 09:52 | NUR ---
Patient brought in by ambulance to the ED for altered LOC that started today. Denied any chest pain or shortness of breath. Denied any nausea, vomiting, or chills. Patient is alert and oriented x2, respirations even and unlabored, speaking in full sentences, ambulating with a steady gait. VSS, pain level 0/10. Informed of wait time. Instructed to notify ED staff for any changes in condition or worsening of symptoms. Patient verbalized understanding.
--- NOTE | 2019-05-15 10:05 | NUR ---
Urine specimen collected.
--- NOTE | 2019-05-15 10:10 | NUR ---
ECG done at bedside as ordered by Dr. Basilio. Patient tolerated the procedure well. ER Physician given copy of EKG for review.
--- NOTE | 2019-05-15 10:32 | NUR ---
X-ray done at bedside as ordered by Dr. Basilio. Patient tolerated the procedure well.
[2019-05-15 11:02] LABS: BASOPHILS % (AUTO) 0.5 % (0.0-2.0); EOSINOPHILS % (AUTO) 0.3 % (0.0-4.0); HEMATOCRIT 34.1 % (36-54); HEMOGLOBIN 11.5 g/dL (14.0-18.0); LYMPHOCYTES # (AUTO) 0.5 K/uL (1.0-5.5); LYMPHOCYTES % (AUTO) 11.7 % (20.5-51.5); MEAN CORPUSCULAR HEMOGLOBIN 31 pg (27-31); MEAN CORPUSCULAR HGB CONC 34 % (32-36); MEAN CORPUSCULAR VOLUME 92 fL (79.0-98.0); MONOCYTES # (AUTO) 0.3 K/uL (0.0-1.0); MONOCYTES % (AUTO) 7.6 % (1.7-9.3); NEUTROPHILS # (AUTO) 3.6 K/uL (1.8-7.7); NEUTROPHILS % (AUTO) 79.9 % (40.0-70.0); PLATELET COUNT (AUTO) 145 K/uL (130-430); RED BLOOD CELL COUNT(AUTO) 3.72 MIL/uL (4.2-6.2); RED CELL DISTRIBUTION WIDTH 16.5 % (9.0-15.0); WHITE BLOOD COUNT (AUTO) 4.5 K/uL (4.8-10.8)
[2019-05-15 11:03] LABS: BILIRUBIN,URINE 1+ (NEGATIVE); BLOOD, URINE 3+ (NEGATIVE); CLARITY/URINE CLOUDY (CLEAR); COLOR,URINE YELLOW (YELLOW); GLUCOSE,URINE NEGATIVE (NEGATIVE); KETONES,URINE TRACE (NEGATIVE); LEUKOCYTE ESTERASE ,URINE 3+ (NEGATIVE); NITRITE, URINE POSITIVE (NEGATIVE); PH,URINE 6.5 (5.0-8.0); PROTEIN URINE 1+ (NEGATIVE)
--- NOTE | 2019-05-15 11:04 | NUR ---
X-ray done at bedside as ordered by Dr. Basilio. Patient tolerated the procedure well.
[2019-05-15 11:11] LABS: ANION GAP 6 (5-15); CALCIUM 9.1 mg/dL (8.4-11.0); CHLORIDE 93 mmol/L (98-107); CREATININE 0.62 mg/dL (0.55-1.30); GLUCOSE 125 mg/dL (70-99); SODIUM SERUM 132 mmol/L (136-145); UREA NITROGEN, BLOOD 13 mg/dL (8-21)
[2019-05-15 11:16] LABS: ALANINE AMINOTRANSFERASE 27 U/L (12-78); ALBUMIN 3.3 g/dL (3.4-4.8); ASPARTATE AMINOTRANSFERASE 26 U/L (10-37); INR 1.1 (0.80-1.20)
[2019-05-15 11:17] LABS: BACTERIA,URINE MODERATE /HPF (None Seen); RBC,URINE 20-50 /HPF (0-3); WBC,URINE 20-50 /HPF (0-3)
--- NOTE | 2019-05-15 11:20 | NUR ---
# 20 gauge angiocath placed to right wrist. Use of asceptic technique. Opsite placed over site. Blood return noted. Flushed with 10 cc of normal saline. No evidence of infiltration noted. Patient tolerated well.
[2019-05-15 11:22] LABS: POTASSIUM 2.6 mmol/L (3.5-5.1)
[2019-05-15] MEDS ORDERED: POTASSIUM CHLORIDE 10 MEQ in NACL 0.9% 1,000 ML IV SCH (11:45)
[2019-05-15] MEDS ORDERED: cefTRIAXone 1 GM IVPB PREMIX 50 ML IV ONE (12:00)
--- NOTE | 2019-05-15 12:12 | NUR ---
Administered Rocephin IVPB as ordered by Dr. Basilio. Patient tolerated the medication well. See eMAR for details.
--- NOTE | 2019-05-15 12:15 | NUR ---
Patient is taken to CT via gurney, in stable condition.
--- NOTE | 2019-05-15 12:26 | NUR ---
Patient is back from CT in stable condition.
--- NOTE | 2019-05-15 13:04 | NUR ---
Received admitiing orders from Dr. Beckwith. Spoke with Jaja.
--- NOTE | 2019-05-15 13:25 | NUR ---
submarine cable equipment technician at bedside collecting blood specimen as ordered by Dr. Basilio. Patient tolerated the procedure well.
--- NOTE | 2019-05-15 13:30 | NUR ---
Son at bedside.
--- NOTE | 2019-05-15 13:46 | NUR ---
Patient will be admitted to care of dR. Richardson. Admitted to TELE unit. Will go to room 132C. Belongings list completed. Complete and up to date summary report printed. SBAR report to be given at bedside with opportunity for questions.
[2019-05-15] MEDS ORDERED: ACETAMINOPHEN 650 MG SUPP.RECT RC PRN (14:00)
--- NOTE | 2019-05-15 14:00 | NUR ---
ADMISSION NOTE PT RECEIVED VIA BRIANRKIMBERLY BY ER NURSE. PT AOX2, ON 2L NC. EDUCATED PT ON USE OF CALL LIGHT, SAFETY AND USE OF BED ALARM. PT VERBALIZED UNDERSTANDING.
--- NOTE | 2019-05-15 14:30 | NUR ---
patient alert awake x 2. vitals signs stable. afebrile. lungs bilaterally clear. abdomen soft and non distended. has skin discoloration on the left arm, left leg. dry/intact. no odor nor drainage noted. has sacral/buttocks redness noted. has iv access on the rt hand #20 with NS +10 meq of kcl at 100cc/hr infusing on well. bed low position, alarmed and locked. call lights within reach. on npo status. will continue to monitor patients status.
--- NOTE | 2019-05-15 15:30 | NUR ---
photos taken and documented on the chart.
[2019-05-15 15:31] VITALS: BP_SYST 158
--- NOTE | 2019-05-15 16:08 | NUR ---
turn every two hours. made comfortable.
--- NOTE | 2019-05-15 16:08 | NUR ---
apply z guard or moisture cream to the buttocks/sacral area.
[2019-05-15] MEDS ORDERED: POTASSIUM CHLORIDE 40 MEQ, LIDOCAINE JECT 2% PF 100 MG 50 MG in NS 250 ML IV ONE (16:15)
[2019-05-15 16:40] VITALS: BP_SYST 160
--- NOTE | 2019-05-15 17:30 | NUR ---
potassium iv infusing at 68cc/hr infusing on well.
[2019-05-15] MEDS ORDERED: cefTRIAXone 1 GM in D5W 50 ML IV SCH (18:00)
--- NOTE | 2019-05-15 18:00 | NUR ---
patient was able to eat apple sauce and orange juice. patient said very hungry.
--- NOTE | 2019-05-15 18:18 | NUR ---
dr celaya came to see
[2019-05-15] MEDS ORDERED: ACETAMINOPHEN 325 MG TABLET PO PRN (18:30)
[2019-05-15] MEDS ORDERED: cloNIDine HCL 0.1 MG TABLET PO PRN (18:30)
--- NOTE | 2019-05-15 19:27 | NUR ---
endorsed to Incoming nurse Kelly ASHTON
[2019-05-15 20:00] VITALS: BP_SYST 154
--- NOTE | 2019-05-15 20:05 | NUR ---
INITIAL NOTES: PT IS LETHARGIC AND SLEEPING , ABLE TO WAKE UP WITH NAME CALLED , ONLY KNOWS HIS NAME , VITALS ARE STABLE ; NOT IN ANY ACUTE DISTRESS; ON O2 2L NC , SAT 98% ; ASSESSMENT DONE ; NOTICED IV TO THE R WRIST 20 G, NO S/S OF ANY INFILTRATION NOTICED ; IV FLUID WITH K IS INFUSING ALSO NOTICED PT IS GETTING K RIDER . VOGEL CATH IS DRAINING DARK YELLOW COLOR URINE TO GRAVITY ; PER REPORT VOGEL WAS CHANGED IN ER BED IN LOW AND LOCK POSITION, BED ALARM IS ON , CALL HERRERA IN REACH ; PT IS CONFUSED UNABLE TO CALL ; WILL CONTINUE TO MONITOR PT .
[2019-05-15] MEDS: CARBIDOPA/LEVODOPA 25/250 MG TABLET PO SCH (20:22)
[2019-05-15] MEDS: DOCUSATE SODIUM 100 MG CAPSULE PO SCH (20:22)
[2019-05-15] MEDS: COMTAN 200 MG TAB PO SCH (20:23)
[2019-05-15] MEDS: LOSARTAN POTASSIUM 50 MG TABLET (COZAAR) PO SCH (20:23)
--- NOTE | 2019-05-15 20:25 | NUR ---
MEDICATION: DUE MEDS CRUSHED AND GIVEN WITH APPLE SAUCE , PT IS ABLE TO SWALLOW WELL , NO S/S OF ANY ASPIRATION NOTICED ; ALL NEEDS ATTENDED ; PT TURNED AND REPOSITIONED ; WILL CONTINUE TO MONITOR PT .
[2019-05-15] MEDS: INSULIN LISPRO SLIDING SCALE 100 UNITS/ML VIAL (humaLOG) SUBCUT PRN (20:28)
--- NOTE | 2019-05-15 22:00 | NUR ---
RN ROUNDS: PT IS SLEEPING , EASILY AROUSABLE TO LIGHT STIMULI , NOT IN ANY ACUTE DISTRESS; WILL CONTINUE TO MONITOR PT . SCD IS ON TO JOSE LOWER LEGS .
--- NOTE | 2019-05-15 23:22 | NUR ---
PAGED: I PAGED DR. SEYMOUR @ [phone] I SPOKE WITH VINNY EXCHANGE DR. SEYMOUR CALLED BACK @[phone]
--- NOTE | 2019-05-15 23:30 | NUR ---
CALLED BACK ; DR SEYMOUR CALLED BACK , INFORMED MD THAT PTS IV FLUID IS NS WITH 10 MEQ AT 70 CC , IT WAS ORDERED BY ER DOCTOR , ASKED HER WETHER SHE WANTS TO CONTINUE THE ORDER , MD ASKED ABOUT THE SODIUM AND K LEVEL , INFORMED AND NOTIFIED MD THAT PT RECEIVED IL NS WITH 10 MEQ AND K RIDER40 X1 , ORDERED TO KEEP PT SALINE LOCK FOR NOW AND WILL CHECK THE LABS IN THE MORNING AND IF NEEDED WILL RESTART IV FLUID TOMORROW
[2019-05-16 00:09] VITALS: BP_SYST 146
--- NOTE | 2019-05-16 01:21 | NUR ---
SWALLOW STEPHANE: SWALLOW EVALUATION CALLED LEFT A MESSAGE IN [employer] MACHINE
--- NOTE | 2019-05-16 01:23 | NUR ---
RN NOTES: PT IS SLEEPING , EASILY AROUSABLE ; RESPIRATION IS EVEN AND NON LABORED ; PROVIDED ENSURE , PT IS ABLE TO SWALLOW WELL , NO S/S OF ANY CHOKING NOTICED , NO COUGH PRESENT AT THIS TIME .
--- NOTE | 2019-05-16 03:16 | NUR ---
RN ROUNDS: PT IS SLEEPING , RESPIRATION IS EVEN AND NON LABORED ; WILL CONTINUE TO MONITOR PT .
[2019-05-16 04:00] VITALS: BP_SYST 145
[2019-05-16 04:46] LABS: BASOPHILS % (AUTO) 0.4 % (0.0-2.0); EOSINOPHILS % (AUTO) 0.2 % (0.0-4.0); HEMATOCRIT 32.6 % (36-54); HEMOGLOBIN 10.9 g/dL (14.0-18.0); LYMPHOCYTES # (AUTO) 0.9 K/uL (1.0-5.5); LYMPHOCYTES % (AUTO) 21.5 % (20.5-51.5); MEAN CORPUSCULAR HEMOGLOBIN 31 pg (27-31); MEAN CORPUSCULAR HGB CONC 33 % (32-36); MEAN CORPUSCULAR VOLUME 92 fL (79.0-98.0); MONOCYTES # (AUTO) 0.5 K/uL (0.0-1.0); MONOCYTES % (AUTO) 11.1 % (1.7-9.3); NEUTROPHILS # (AUTO) 2.8 K/uL (1.8-7.7); NEUTROPHILS % (AUTO) 66.8 % (40.0-70.0); PLATELET COUNT (AUTO) 138 K/uL (130-430); RED BLOOD CELL COUNT(AUTO) 3.54 MIL/uL (4.2-6.2); RED CELL DISTRIBUTION WIDTH 17.1 % (9.0-15.0); WHITE BLOOD COUNT (AUTO) 4.2 K/uL (4.8-10.8)
--- NOTE | 2019-05-16 05:00 | NUR ---
SPONGE BATH / PERICARE: PT CLEANED , VOGEL CARE PROVIDED ; LINEN AND GOWN CHANGED ; PT TURNED AND REPOSITIONED; Z GUARD APPLIED TO SACRAL AREA , NO OPEN WOUNDS NOTICED
[2019-05-16 05:09] LABS: ANION GAP 7 (5-15); CALCIUM 8.6 mg/dL (8.4-11.0); CHLORIDE 103 mmol/L (98-107); CREATININE 0.62 mg/dL (0.55-1.30); GLUCOSE 142 mg/dL (70-99); SODIUM SERUM 141 mmol/L (136-145); THYROID STIMULATING HORMONE 0.42 uIu/mL (0.36-3.74); UREA NITROGEN, BLOOD 15 mg/dL (8-21)
[2019-05-16] MEDS: NORMAL SALINE 5 ML DISP.SYRIN IVF SCH ×3 (06:10→21:57)
[2019-05-16] MEDS: INSULIN LISPRO SLIDING SCALE 100 UNITS/ML VIAL (humaLOG) SUBCUT PRN ×3 (06:16→21:56)
--- NOTE | 2019-05-16 07:05 | NUR ---
CLOSING NOTES: PT IS SLEEPING , NOT IN ANY ACUTE DISTRESS; RESPIRATION IS EVEN AND NON LABORED ; ALL NEEDS ATTENDED ; WILL CONTINUE TO MONITOR PT AND WILL ENDORSE TO NEXT SHIFT NURSE .
--- NOTE | 2019-05-16 07:50 | NUR ---
AM NOTES RECEIVED PT IN BED. A/OX1. DENIES ANY PAIN OR SOB AT THIS TIME. VITALS STABLE NOT IN ACUTE DISTRESS. SAFETY PRECAUTIONS MAINTAINED. CALL LIGHT WITHIN REACH. REPOSITION WITH PILLOW. KEPT COMFORTABLE WILL CONTINUE TO MONITOR
[2019-05-16 08:02] VITALS: BP_SYST 147
[2019-05-16] MEDS: PANTOPRAZOLE SODIUM 40 MG TAB PO SCH (09:17)
[2019-05-16] MEDS: CARBIDOPA/LEVODOPA 25/250 MG TABLET PO SCH ×4 (09:18→21:49)
[2019-05-16] MEDS: LOSARTAN POTASSIUM 50 MG TABLET (COZAAR) PO SCH ×2 (09:18→21:49)
[2019-05-16] MEDS: ASPIRIN 81 MG TAB.CHEW PO SCH (09:18)
[2019-05-16] MEDS: COMTAN 200 MG TAB PO SCH ×4 (09:19→21:49)
[2019-05-16] MEDS ORDERED: POTASSIUM CHLORIDE 40 MEQ, LIDOCAINE JECT 2% PF 100 MG 50 MG in NS 250 ML IV ONE (09:30)
--- NOTE | 2019-05-16 09:30 | NUR ---
meds due meds given with apple sauce. pt swallowed well no s/s of aspiration noted/ needs attended kept comfortable
--- NOTE | 2019-05-16 11:23 | NUR ---
Nutrition Update Osbaldo Scale 15 noted. Pt admitted for metabolic encephalopathy, UTI. Diet: CCHO, 2 gm Na, mechanical soft BMI: 22.6 kg/m2 RD to follow per nutrition care standards.
--- NOTE | 2019-05-16 11:57 | NUR ---
DC PLANNING CHART REVIEWED, PATIENT CONFUSED, SPOKE TO DAUGHTER IN LAW KELLI # [phone], SHE SAID PATIENT WAS A&O X3, SWALLOW OK BUT EATING SLOWLY, SOMETIME NEED TO FEED HIM, SOMETIME PATIENT EATING BY HIS OWN. ALDS- FULLY ASSISTANCE. W/C BOUND. CURRENTLY PATIENT HAS BEEN LIVING AT [facility] FOR ABOUT 2 YEARS. TRANSPORTATION: PRIVATE VEHICLE VS AMBULANCE, PLEASE NOTIFY FAMILY PRIOR TO ARRANGE AMBULANCE. DCP: [facility] VS SNF- [facility] OR OTHER SNF. CONTINUE FOLLOW UP WITH DCP NEEDED. ENRIQUE ASHTON CM Addendum: 05/16/19 at 1201 by Kathrin Grady RN DC PLANNING FOR DCP NEEDED: [facility] JOSE MARTE, TEL # [phone], FAX # [phone].
--- NOTE | 2019-05-16 12:10 | NUR ---
md visit pt seen by belia informed about pt status and increased res rate 29 . new order received pt stable not in acute distress. pulse ox 98% on 2 l nc.repositioned with pillow. precision agriculture specialist feeding pt.no s/s of aspiration noted. will continue to monitor
[2019-05-16 12:13] VITALS: BP_SYST 129
[2019-05-16] MEDS ORDERED: POTASSIUM CHLORIDE 10 MEQ TAB.PRT.SR PO ONE (12:45)
--- NOTE | 2019-05-16 12:48 | NUR ---
CONSULTATION PAGED/CALLED Reason for Consultation: ALTERED MENTAL STATUS, PARKINSON'S DISEASE Person Who was Notified: ELLEN Consulting Physician: DR. Heavenly GALDAMEZ Wafer Mounter Specialty: NEURO Ordering Physician: DAWN
[2019-05-16] MEDS: cefTRIAXone 1 GM in D5W 50 ML IV SCH (12:55)
--- NOTE | 2019-05-16 15:17 | NUR ---
S.T. SWALLOW EVAL SWALLOW EVAL COMPLETED. PT PRESENTS W/ ML-MOD OROPHARYNGEAL DYSPHAGIA FOR PUREE AND THIN/THICK LIQUIDS W/ DELAYED BOLUS TRANSFER AND DELAYED SWALLOW. NO S/S OF ASPIRATION. PT HAS DIFFICULTY SUCKING VIA STRAW. REC: PUREE DIET. THIN LIQUIDS OK. NO STRAW. 02 DURING MEALS IF NOT ALREADY ON. NURSE DEISY NOTIFIED.
--- NOTE | 2019-05-16 16:15 | NUR ---
hygiene pt cleaned and ariane care provided. linen changed. z gaurd applied to sacral area. skin intact. repositioned with pillow . denies any pain or sob.will continue to monitor
[2019-05-16 16:28] VITALS: BP_SYST 132
--- NOTE | 2019-05-16 19:10 | NUR ---
OPENING NOTES RECEIVE REPORT FORM MORNING SHIFT NURSE POLI DANIELLE. PATIENT AWAKE, AOX1, RESPOND TO NAME AND SLIGHT STIMULI, UNABLE TO FOLLOW COMMANDS. NO SIGNS RESPIRATORY DISTRESS AND DISCOMFORT NOTED. ON 2L OF OXYGEN VIA NASAL CANULA, ATTACHED AND SECURED. VOGEL CATHETER, ATTACHED AND DRAINING BY GRAVITY. IV SITE, PATENCY NOTED. VITAL SIGNS TAKEN AND RECORDED. CALL LIGHT WITHIN REACH, PATIENT EDUCATED TO USE THE CALL LIGHT WHEN ASSISTANCE IS NEEDED. PATIENT UNABLE TO VERBALIZED UNDERSTANDING. BED LOCKED AND IN LOWEST POSITION. BED ALARM ON. SAFETY PRECAUTIONS IN PLACE. WILL CONTINUE TO MONITOR PATIENT.
--- NOTE | 2019-05-16 19:25 | NUR ---
P.T. NOTES P.T. FAWN COMPLETED; ENDORSED TO NURSING. Addendum: 05/16/19 at 1926 by Doris Cardoso PT Amended: Links added.
--- NOTE | 2019-05-16 19:30 | NUR ---
CLOSING NOTES DENIES ANY PAIN OR SOB AT THIS TIME. VITALS STABLE NOT IN ACUTE DISTRESS. SAFETY PRECAUTIONS MAINTAINED. CALL LIGHT WITHIN REACH. REPORT GIVEN TO NIGHT RN
[2019-05-16 20:00] VITALS: BP_SYST 141
[2019-05-16] MEDS: DOCUSATE SODIUM 100 MG CAPSULE PO SCH (21:49)
--- NOTE | 2019-05-16 21:57 | NUR ---
MED PASS/ KX=[id number] BS CHECK DONE AT THIS TIME., COVERAGE OF 4 UNITS OF HUMALOG GIVEN. DUE MEDICATION GIVEN WELL, PATIENT ABLE TO TOLERATE, PATIENT EDUCATED ON MEDICATIONS THAT IS GIVEN BUT PATIENT UNABLE TO VERBALIZED UNDERSTANDING, PATIENT VERBALIZED ''GO AWAY'' INSTEAD TO RN. NO SIGNS OF RESPIRATORY DISTRESS AND DISCOMFORT NOTED. SAFETY PRECAUTIONS IN PLACE. WILL CONTINUE TO MONITOR PATIENT
--- NOTE | 2019-05-16 23:39 | NUR ---
RN ROUNDS PATIENT ASLEEP AT THIS TIME. NO SIGNS OF RESPIRATORY DISTRESS AND DISCOMFORT NOTED. BREATHING EVEN AND UN LABORED. ON 2L OF OXYGEN VIA NASAL CANULA, ATTACHED AND SECURED. VOGEL CATHETER DRAINING WELL. SAFETY PRECAUTIONS IN PLACE. WILL CONTINUE TO MONITOR PATIENT
[2019-05-17 00:24] VITALS: BP_SYST 145
--- NOTE | 2019-05-17 02:16 | NUR ---
RN ROUNDS PATIENT ASLEEP AT THIS TIME. NO SIGNS OF RESPIRATORY DISTRESS AD DISCOMFORT NOTED. BREATHING EVEN AND UNLABORED. 2L OF OXYGEN, ATTACHED AND SECURED. VOGEL CATHETER DRAINING BY GRAVITY. SAFETY PRECAUTIONS IN PLACE. WILL CONTINUE TO MONITOR PATIENT,
[2019-05-17 06:13] LABS: BASOPHILS % (AUTO) 0.4 % (0.0-2.0); EOSINOPHILS % (AUTO) 1.3 % (0.0-4.0); HEMOGLOBIN 10.4 g/dL (14.0-18.0); LYMPHOCYTES % (AUTO) 29.9 % (20.5-51.5); MEAN CORPUSCULAR HEMOGLOBIN 31 pg (27-31); MEAN CORPUSCULAR HGB CONC 33 % (32-36); MEAN CORPUSCULAR VOLUME 94 fL (79.0-98.0); MONOCYTES # (AUTO) 0.4 K/uL (0.0-1.0); MONOCYTES % (AUTO) 11.3 % (1.7-9.3); NEUTROPHILS % (AUTO) 57.1 % (40.0-70.0); PLATELET COUNT (AUTO) 130 K/uL (130-430); RED CELL DISTRIBUTION WIDTH 16.6 % (9.0-15.0); WHITE BLOOD COUNT (AUTO) 3.5 K/uL (4.8-10.8)
[2019-05-17 06:23] LABS: ALANINE AMINOTRANSFERASE 21 U/L (12-78); ALBUMIN 2.5 g/dL (3.4-4.8); ANION GAP 4 (5-15); ASPARTATE AMINOTRANSFERASE 69 U/L (10-37); CALCIUM 9.3 mg/dL (8.4-11.0); CHLORIDE 105 mmol/L (98-107); CREATININE 0.56 mg/dL (0.55-1.30); GLUCOSE 152 mg/dL (70-99); POTASSIUM 3.2 mmol/L (3.5-5.1); SODIUM SERUM 140 mmol/L (136-145); TOTAL BILIRUBIN 0.5 mg/dL (0.0-1.0); UREA NITROGEN, BLOOD 16 mg/dL (8-21)
[2019-05-17] MEDS: NORMAL SALINE 5 ML DISP.SYRIN IVF SCH ×3 (06:23→22:06)
[2019-05-17] MEDS: INSULIN LISPRO SLIDING SCALE 100 UNITS/ML VIAL (humaLOG) SUBCUT PRN ×3 (06:25→17:35)
--- NOTE | 2019-05-17 06:39 | NUR ---
CLOSING NOTES JH=[id number] 2 UNITS OF HUMALOG FOR COVERAGE IS GIVEN. PATIENT WENT BACK TO ASLEEP AT THIS TIME. NO SIGNS RESPIRATORY DISTRESS AND DISCOMFORT NOTED. ON 2L OF OXYGEN VIA NASAL CANULA, ATTACHED AND SECURED. VOGEL CATHETER, ATTACHED AND DRAINING BY GRAVITY. IV SITE, PATENCY NOTED. CALL LIGHT WITHIN REACH. BED LOCKED AND IN LOWEST POSITION. BED ALARM ON. SAFETY PRECAUTIONS IN PLACE. ALL NEEDS MET THROUGHOUT THE SHIFT. WILL CONTINUE TO MONITOR UNTIL ENDORSE TO ONCOMING SHIFT NURSE FOR CONTINUITY OF CARE
--- NOTE | 2019-05-17 07:10 | NUR ---
OPENING NOTES RECEIVED BEDSIDE SBAR FROM NIGHT RN, PATIENT IN BED, EYES CLOSED, RESPIRATIONS EVEN, NON LABORED, BED IN LOW AND LOCKED POSITION, CALL LIGHT WITH IN REACH
[2019-05-17 08:00] VITALS: BP_SYST 143
[2019-05-17] MEDS: CARBIDOPA/LEVODOPA 25/250 MG TABLET PO SCH ×4 (08:53→21:59)
[2019-05-17] MEDS: PANTOPRAZOLE SODIUM 40 MG TAB PO SCH (08:53)
[2019-05-17] MEDS: ASPIRIN 81 MG TAB.CHEW PO SCH (08:53)
[2019-05-17] MEDS: LOSARTAN POTASSIUM 50 MG TABLET (COZAAR) PO SCH ×2 (08:54→22:01)
[2019-05-17] MEDS: COMTAN 200 MG TAB PO SCH ×5 (08:54→22:28)
[2019-05-17] MEDS ORDERED: POTASSIUM CHLORIDE 40 MEQ, LIDOCAINE JECT 2% PF 100 MG 50 MG in NS 250 ML IV ONE (09:15)
--- NOTE | 2019-05-17 09:30 | NUR ---
md rounds Dr. Beckwith bedside examining patient
--- NOTE | 2019-05-17 10:14 | NUR ---
IV access IV catheter leaking, catheter removed, no bleeding, educated patient on purpose and procedure for IV catheter placement, new IV catheter placed to left AC, 24G, flushes easily with blood return, patient tolerated well.
[2019-05-17] MEDS: cefTRIAXone 1 GM in D5W 50 ML IV SCH (11:22)
[2019-05-17 12:00] VITALS: BP_SYST 143
--- NOTE | 2019-05-17 12:30 | NUR ---
lunch patient in bed, sitting up, eating lunch with assistance, bed in low and locked position, call light within reach, bed alarm on
--- NOTE | 2019-05-17 15:36 | NUR ---
Spoke with Physician spoke with Dr. Beckwith, informed her that per pharmacist Bo, patients urine culture is positive for pseudomonas aeruginosa, patient is currently taking rocephin which is not effective, per prince Soriano levaquin or merrem would be recommended, new orders received from Dr. Beckwith, verified with telephone read back.
[2019-05-17 17:22] VITALS: BP_SYST 151
[2019-05-17] MEDS: metFORMIN HCL 500 MG TABLET PO SCH (17:30)
[2019-05-17] MEDS: LEVOFLOXACIN 500 MG/D5W 100 ML IV SCH (17:31)
[2019-05-17] MEDS ORDERED: POTASSIUM CHLORIDE 10 MEQ TAB.PRT.SR PO ONE (18:00)
--- NOTE | 2019-05-17 18:29 | NUR ---
dinner patient in bed, sitting upright, eating dinner with assistance, patient tolerating well, no signs of distress, bed in low and locked position, call light within reach, bed alarm on
--- NOTE | 2019-05-17 19:29 | NUR ---
closing note bedside SBAR given to night RN, patient in bed awake, respirations even non labored, bed in low and locked position, call light within reach, bed alarm on, care endorsed to night RN
[2019-05-17] MEDS: DOCUSATE SODIUM 100 MG CAPSULE PO SCH (22:10)
[2019-05-18 01:15] VITALS: BP_SYST 143
[2019-05-18] MEDS: NORMAL SALINE 5 ML DISP.SYRIN IVF SCH ×3 (06:37→22:00)
[2019-05-18] MEDS: INSULIN LISPRO SLIDING SCALE 100 UNITS/ML VIAL (humaLOG) SUBCUT PRN ×4 (06:56→22:26)
--- NOTE | 2019-05-18 07:25 | NUR ---
Received patient and report from [facility] shift nurse. Patient in no acute distress. Sleeping. Side rails x 3 up. Call light with in reach. Breathing even and unlabored.
[2019-05-18 08:00] VITALS: BP_SYST 149
[2019-05-18] MEDS: PANTOPRAZOLE SODIUM 40 MG TAB PO SCH (09:05)
[2019-05-18] MEDS: COMTAN 200 MG TAB PO SCH ×4 (09:06→22:32)
[2019-05-18] MEDS: LOSARTAN POTASSIUM 50 MG TABLET (COZAAR) PO SCH ×2 (09:06→22:34)
[2019-05-18] MEDS: metFORMIN HCL 500 MG TABLET PO SCH ×2 (09:07→17:18)
[2019-05-18] MEDS: ASPIRIN 81 MG TAB.CHEW PO SCH (09:07)
[2019-05-18] MEDS: CARBIDOPA/LEVODOPA 25/250 MG TABLET PO SCH ×4 (09:08→22:33)
--- NOTE | 2019-05-18 11:25 | NUR ---
DISCHARGE PLANNING PT HAS A DISCHARGE ORDER TODAY, PATIENT IS ACCEPTED BACK TO [facility], SPOKE TO GEN. WILL CALL TO GIVE REPORT TO [facility].
[2019-05-18 12:00] VITALS: BP_SYST 158
[2019-05-18 15:20] VITALS: BP_SYST 158
--- NOTE | 2019-05-18 15:55 | NUR ---
Called My (family member) in regards to patient discharging, stated will cotton picking machine operator at 1830 with with clothes for patient to wear and to sign discharge instructions and summary.
--- NOTE | 2019-05-18 16:09 | NUR ---
Gave report to nurse Weber at [facility].
[2019-05-18 16:20] VITALS: BP_SYST 153
[2019-05-18] MEDS: LEVOFLOXACIN 500 MG/D5W 100 ML IV SCH (17:17)
--- NOTE | 2019-05-18 19:50 | NUR ---
Son called and stated patient is unsafe to go back to [facility] and every time discharged from hospital patient is admitted to [facility] section then transitioned to [facility]. Called Maria E to clarify information, security stated [facility] has no nurses at night or CNAs and only has one medtech with caregivers during the night who checks on patient only twice at night. MD Beckwith paged and notified Maria E clarification, ordered discharge planning for tomorrow.
--- NOTE | 2019-05-18 19:50 | NUR ---
Paged Dr. Beckwith s/w Pauline
--- NOTE | 2019-05-18 19:59 | NUR ---
Paged Dr. Beckwith s/w Glenna
--- NOTE | 2019-05-18 20:07 | NUR ---
Endorsed report and patient to NOC shift nurse. Patient in no acute distress. Breathing even and unlabored. Call light with in reach. Side rails x 3 up.
[2019-05-18] MEDS: DOCUSATE SODIUM 100 MG CAPSULE PO SCH (22:32)
[2019-05-19 01:18] VITALS: BP_SYST 136
[2019-05-19] MEDS: NORMAL SALINE 5 ML DISP.SYRIN IVF SCH ×3 (06:00→21:23)
[2019-05-19] MEDS: INSULIN LISPRO SLIDING SCALE 100 UNITS/ML VIAL (humaLOG) SUBCUT PRN ×4 (06:40→21:25)
--- NOTE | 2019-05-19 07:30 | NUR ---
Received patient and report from [facility] shift nurse. Patient in no acute distress, breathing even and unlabored, sleeping in bed with side rails x 3 up, call light with in reach. No pain as evidenced by no grimacing or moaning.
[2019-05-19 07:40] LABS: ANION GAP 5 (5-15); CALCIUM 9.3 mg/dL (8.4-11.0); CHLORIDE 105 mmol/L (98-107); CREATININE 0.71 mg/dL (0.55-1.30); GLUCOSE 186 mg/dL (70-99); POTASSIUM 3.5 mmol/L (3.5-5.1); SODIUM SERUM 143 mmol/L (136-145); UREA NITROGEN, BLOOD 24 mg/dL (8-21)
[2019-05-19 08:00] VITALS: BP_SYST 156
[2019-05-19] MEDS: metFORMIN HCL 500 MG TABLET PO SCH ×3 (09:55→17:24)
[2019-05-19] MEDS: CARBIDOPA/LEVODOPA 25/250 MG TABLET PO SCH ×4 (09:55→21:10)
[2019-05-19] MEDS: PANTOPRAZOLE SODIUM 40 MG TAB PO SCH (09:55)
[2019-05-19] MEDS: COMTAN 200 MG TAB PO SCH ×4 (09:55→21:10)
[2019-05-19] MEDS: ASPIRIN 81 MG TAB.CHEW PO SCH (09:56)
[2019-05-19] MEDS: LOSARTAN POTASSIUM 50 MG TABLET (COZAAR) PO SCH ×2 (09:57→21:10)
--- NOTE | 2019-05-19 11:03 | NUR ---
Discharge Planning: DEBBIE faxed pt referral to [facility] (f [phone] p [phone]) DIMPLEP to follow up. Addendum: 05/19/19 at 1419 by Briana Pierre DP DEBBIE spoke to Maribeth at [facility] (f [phone] p [phone]) she has forwarded fax to care home director. DEBBIE requested that she call nurse station when patient can go back.
[2019-05-19 12:10] VITALS: BP_SYST 150
[2019-05-19 15:59] LABS: ANION GAP 4 (5-15); CALCIUM 9.2 mg/dL (8.4-11.0); CHLORIDE 102 mmol/L (98-107); CREATININE 0.75 mg/dL (0.55-1.30); GLUCOSE 159 mg/dL (70-99); POTASSIUM 3.4 mmol/L (3.5-5.1); SODIUM SERUM 136 mmol/L (136-145); UREA NITROGEN, BLOOD 21 mg/dL (8-21)
[2019-05-19 16:03] VITALS: BP_SYST 142
--- NOTE | 2019-05-19 16:10 | NUR ---
Daughter My called, gave update as requested.
[2019-05-19] MEDS: LEVOFLOXACIN 500 MG/D5W 100 ML IV SCH (16:17)
--- NOTE | 2019-05-19 16:30 | NUR ---
20 gauge IV line insertion placed left forearm, patent with clean, dry, intact dressing with no redness, swelling, drainage. Patient tolerated placement well.
--- NOTE | 2019-05-19 18:49 | NUR ---
REAGAN SPOKE WITH REAGAN FLANAGAN AND SHE SAID THAT ALEX TRIED TO CALL AND LEFT A MESSAGE WITH SOMEONE AND SAID NOT TO DC PT TILL TOMORROW 05-20-2019. NOTIFIED CHARGE NURSE
--- NOTE | 2019-05-19 19:28 | NUR ---
Endorsed patient and gave report to [facility] shift nurse. Patient sleeping with side rails raised x 3. In no acute distress, breathing even and unlabored. Call light with in reach. Denies pain.
--- NOTE | 2019-05-19 19:30 | NUR ---
CHANGE OF SHIFT; pt. awake, resting, oriented to place, knows his name. O2 off his nose. no acute distress. bed alarm on, on fall risk precaution. unable to use call light. frequent rounds.
[2019-05-19 20:30] VITALS: BP_SYST 129
--- NOTE | 2019-05-19 20:30 | NUR ---
NOTES: pt. incontinent of stool, cullen cath to osd. ariane care done with CITY EDITOR. IV lock on left forearm. O2 @ 2l/nc. VS checked. denies any pain nor discomfort. noted slight tremors due to Parkinson. follows simple commands. sequential on both lower extremities. kept warm and comfortable.
[2019-05-19] MEDS: DOCUSATE SODIUM 100 MG CAPSULE PO SCH (21:11)
--- NOTE | 2019-05-19 21:30 | NUR ---
NOTES: BS checked 180 with sliding scale coverage. due po meds crushed and tolerated well.
--- NOTE | 2019-05-20 00:01 | NUR ---
NOTES: pt. repositioned. ariane care done by DOORSHAKER. pt. went back to sleep. kept warm with blanket.
[2019-05-20 00:07] VITALS: BP_SYST 143
--- NOTE | 2019-05-20 02:00 | NUR ---
NOTES: pt. checked, sleeping comfortably. no acute distress.
--- NOTE | 2019-05-20 04:31 | NUR ---
NOTES: condition observed. continue to monitor. pt. remain sleeping.
--- NOTE | 2019-05-20 05:30 | NUR ---
NOTES: pt. repositioned, turn to sides. condition unchanged.
[2019-05-20] MEDS: NORMAL SALINE 5 ML DISP.SYRIN IVF SCH (06:17)
[2019-05-20] MEDS: INSULIN LISPRO SLIDING SCALE 100 UNITS/ML VIAL (humaLOG) SUBCUT PRN (06:22)
--- NOTE | 2019-05-20 06:50 | NUR ---
CLOSING NOTES; pt. awakened, BS checked 159 with sliding scale coverage. IV site patent w,TKo running. repositioned. cullen cath intact. needs further care and assistance.will endorse on possible discharge with town planner for day shift nurse.bed alarm on.
[2019-05-20 08:15] VITALS: BP_SYST 170
--- NOTE | 2019-05-20 08:15 | NUR ---
INITIAL ROUNDS Received pt AAOx2, no s/s resp distress, no c/o pain or discomfort. Akers draining to gravity with yellow urine. Pt reposition with pillow support and heels off-loaded for skin care and comfort. Showed patient the call light to see if he could push and pt unable to push the button-will try again later. Side rails up x3, bed alarm on and room across from nursing station for safety. Call light within reach.
[2019-05-20] MEDS: CARBIDOPA/LEVODOPA 25/250 MG TABLET PO SCH (10:36)
[2019-05-20] MEDS: metFORMIN HCL 500 MG TABLET PO SCH (10:37)
[2019-05-20] MEDS: PANTOPRAZOLE SODIUM 40 MG TAB PO SCH (10:37)
[2019-05-20] MEDS: LOSARTAN POTASSIUM 50 MG TABLET (COZAAR) PO SCH (10:37)
[2019-05-20] MEDS: COMTAN 200 MG TAB PO SCH (10:38)
[2019-05-20] MEDS: ASPIRIN 81 MG TAB.CHEW PO SCH (10:38)
--- NOTE | 2019-05-20 10:45 | NUR ---
ROUNDS/CALL LIGHT Pt given due medication. Pt more awake now, answering simple questions, pt given call light and able to push the button for the call light. All precautions remain in place. Call light within reach.
[2019-05-20] MEDS ORDERED: POTASSIUM CHLORIDE 20 MEQ TAB.PRT.SR PO ONE (11:15)
--- NOTE | 2019-05-20 11:53 | NUR ---
DC PLANNING Called & spoke w Dr Beckwith to discuss plan, SNF vs back to [facility]. Per Dr Beckwith no skilled need, pt to go back to [facility], gave phone order. Called & left msg w son Mk Keen, ph [phone]. Called & spoke w Dtr in My, ph [phone], she was with pt's son Mk. Discussed no Skilled need(pt at baseline, max assist/non-ambulatory), states both agreeable w dc back to [facility] living. Per My they will come pickle sorter pt & take back to [place] after her appt @ 145pm. Updated pt's nurse.
--- NOTE | 2019-05-20 14:45 | NUR ---
REPORT CALLED Report called to Judi GONZALEZ by Frances Pizano RN. Judi GONZALEZ informed of need for pt to take Levaquin 500 mg po daily until 05/24/2019 and to change Akers q 3 weeks.
--- NOTE | 2019-05-20 15:05 | NUR ---
PATIENT DISCHARGED Patient's son & [id number] My given medication reconciliation form and D/C instructions. Exit Care on UTI explained & provided. My verbalized her understanding. Patient in stable condition, ID band removed. IV catheter removed, intact and dressing applied, no active bleeding. Akers draining to gravity, emptied. All belongings sent with patient. Patient left floor via wheelchair to private vehicle in no distress.
== END 2019-05-20 15:05 | DRG 689 ==
LOC: SED 09:48 → STU 13:31 → SMU 05-19 13:19
PROVIDERS: ADMIT Internal Medicine; ATTEND Internal Medicine
DX: N39.0 Urinary tract infection, site not specified (principal); G93.41 Metabolic encephalopathy; E11.9 Type 2 diabetes mellitus without complications; E87.6 Hypokalemia; G20 Parkinson's disease; G24.9 Dystonia, unspecified; I10 Essential (primary) hypertension; K21.9 Gastro-esophageal reflux disease without esophagitis; Z96.649 Presence of unspecified artificial hip joint; Z99.3 Dependence on wheelchair; Z88.8 Allergy status to other drugs, medicaments and biological substances; Z79.899 Other long term (current) drug therapy
CPT/HCPCS: 36415; 70450-TC; 71045; 80048; 80053; 81000-TC; 82962; 83605; 83735-TC; 84443-TC; 84484; 85025; 85610-TC; 85730-TC; 86710; 87040-TC; 87081; 87086; 87186-TC; 92610-GN; 93005; 96365; 99291; G0378; J0696; J1956; J3480; J7030; J7050; J7060

== ENCOUNTER 2021-11-09 11:29 | Inpatient (IN) | payer OTHER ==
[~2021-11-09] VITALS: Ht 160 cm; Wt 54.4 kg
[2021-11-09] VITALS (11 sets, daily range): BP systolic 79–125
[~2021-11-09 11:29] MED LIST changes: -ASPI-1155 PO; -CELE200C PO; -COLL30OI2 TP; -COM200 PO; +ENTA200T30 PO; -FENO145T PO; +FENO48TA8 PO; +LOSA100T3 PO; -LOSA1TAB43 PO; -OMEP20CA11 PO; +OMEP20CA15 PO; +POTA-197 PO; -POTA-88 PO; +TAMS0.4C96 PO
--- NOTE | 2021-11-09 11:29 | NUR ---
Placed in room 01 . Placed on awake overnight monitor, blood pressure machine and pulse oximeter. To gown for exam. Side rails up.
[2021-11-09] MEDS ORDERED: NACL 0.9% 2,000 ML IV ONE (11:45)
--- NOTE | 2021-11-09 11:49 | NUR ---
INSPECTOR TYPE IGOR Quintana responded to a request for Social Service support from ED. IGOR Quintana collaborated with ED staff to obtain clarification on Hospice ([facility] [phone]) and DNR wishes of the family. IGOR Quintana will continue to be available as needed
[2021-11-09 12:12] LABS: BASOPHILS % (AUTO) 0.1 % (0.0-2.0); HEMATOCRIT 36.7 % (36-54); HEMOGLOBIN 11.7 g/dL (14.0-18.0); LYMPHOCYTES # (AUTO) 1.7 K/uL (1.0-5.5); MEAN CORPUSCULAR HEMOGLOBIN 30 pg (27-31); MEAN CORPUSCULAR HGB CONC 32 % (32-36); MEAN CORPUSCULAR VOLUME 94 fL (79.0-98.0); MONOCYTES # (AUTO) 0.8 K/uL (0.0-1.0); MONOCYTES % (AUTO) 4.6 % (1.7-9.3); NEUTROPHILS # (AUTO) 14.8 K/uL (1.8-7.7); NEUTROPHILS % (AUTO) 85.3 % (40.0-70.0); PLATELET COUNT (AUTO) 210 K/uL (130-430); RED BLOOD CELL COUNT(AUTO) 3.91 MIL/uL (4.2-6.2); RED CELL DISTRIBUTION WIDTH 16.5 % (9.0-15.0); WHITE BLOOD COUNT (AUTO) 17.4 K/uL (4.8-10.8)
[2021-11-09 12:24] LABS: ANION GAP 11 (5-15); CALCIUM 8.4 mg/dL (8.4-11.0); CHLORIDE 119 mmol/L (98-107); GLUCOSE 148 mg/dL (70-99); POTASSIUM 3.4 mmol/L (3.5-5.1)
[2021-11-09 12:25] LABS: CREATININE 2.94 mg/dL (0.55-1.30)
[2021-11-09 12:41] LABS: ALANINE AMINOTRANSFERASE 2 U/L (12-78); ALBUMIN 1.3 g/dL (3.4-4.8); ASPARTATE AMINOTRANSFERASE 20 U/L (10-37); TOTAL BILIRUBIN 1.1 mg/dL (0.0-1.0)
[2021-11-09] MEDS ORDERED: NACL 0.9% 1,000 ML IV ONE (12:45)
[2021-11-09] MEDS ORDERED: NOREPINEPHRINE BITARTRATE 4 MG in D5W 246 ML IV PRN ×2 (12:45→16:15)
[2021-11-09] MEDS ORDERED: PIPERACILLIN/TAZO 4.5GM/DEX-IS 100 ML IV SCH ×2 (12:45→18:00)
[2021-11-09] MEDS ORDERED: PIPERACILLIN/TAZO 4.5GM/DEX-IS 100 ML IV ONE (13:00)
[2021-11-09 13:03] LABS: SODIUM SERUM 161 mmol/L (136-145); UREA NITROGEN, BLOOD 126 mg/dL (8-21)
[2021-11-09 13:04] LABS: ACETAMINOPHEN < 1 ug/mL (1-30); ALCOHOL, BLOOD < 3 mg/dL (<10)
[2021-11-09 13:09] LABS: C-REACTIVE PROTEIN QUANT 17.4 mg/dL (0-0.5)
--- NOTE | 2021-11-09 13:11 | NUR ---
DR. MARTE BEDSIDE TRIED TO START IV ACESS IN RIJ BUT FAILED. DR. MARTE STARTED IO ON LEFT LEG FOR LEVOPHED ONLY.
--- NOTE | 2021-11-09 13:13 | NUR ---
PER DR. MARTE CONFIRMED WITH FAMILY. PT WAS ON DNR.
[2021-11-09] MEDS ORDERED: NOREPINEPHRINE 4 MG/4 ML VIAL IV ONE ×2 (13:29→15:58)
[2021-11-09] MEDS ORDERED: ACETAMINOPHEN 650 MG SUPP.RECT RC PRN (14:00)
[2021-11-09] MEDS: NACL 0.9% 1,000 ML IV SCH ×2 (14:01→15:17)
[2021-11-09 14:07] LABS: ACETONE, SERUM NEGATIVE (NEGATIVE)
[2021-11-09 14:38] LABS: INR 1.2 (0.80-1.20)
[2021-11-09] MEDS ORDERED: IPRATROPIUM/ALBUTEROL SULFATE 3 ML AMPUL.NEB (DUONEB) INH ONE (16:30)
[2021-11-09] MEDS ORDERED: DEXTROSE 50% JECT 50 ML DISP.SYRIN IVP PRN (16:30)
[2021-11-09 17:12] LABS: ANION GAP 9 (5-15); CALCIUM 7.8 mg/dL (8.4-11.0); CREATININE 2.42 mg/dL (0.55-1.30); GLUCOSE 174 mg/dL (70-99); POTASSIUM 3.2 mmol/L (3.5-5.1)
[2021-11-09] MEDS ORDERED: ALBUMIN HUMAN 25% 100 ML IV ONE (17:25)
[2021-11-09 17:28] LABS: SODIUM SERUM 161 mmol/L (136-145)
[2021-11-09] MEDS: ALBUMIN HUMAN 25% 100 ML IV SCH ×2 (17:28→20:45)
[2021-11-09] MEDS: PIPERACILLIN/TAZOBACTAM 2.25 GM in NS 50 ML IV SCH ×2 (17:29→23:58)
[2021-11-09 17:30] LABS: CHLORIDE 123 mmol/L (98-107); UREA NITROGEN, BLOOD 123 mg/dL (8-21)
[2021-11-09] MEDS ORDERED: VANCOMYCIN HCL 1,000 MG in NS 250 ML IV ONE (19:00)
--- NOTE | 2021-11-09 19:20 | NUR ---
OPENING NOTES: RECEIVED BEDSIDE REPORT FROM CLARA. PATIENT IS NON RESPONSIVE TO VOICE BUT DOES GRIMACE WITH STERNAL RUB. PATIENT IS HAS A LEFT AC 18 G WITH NS RUNNING AT 300, LEVO RUNNING AT 0.2 MCG/KG/MIN. PATIENT HAS AN IO THAT THE DOCTOR WANTED TO LEAVE IN FOR NOW. ON A NON REBREATHER MASK AT 10L. PATIENT HAS SKIN TEARS ON BUTTOCKS THAT ARE COVERED WITH A FOAM DRESSING. PATIENT SON WAS AT BEDSIDE AND INFORMED ME THE PATIENT IS A DNR. PATIENT HAS A CONDOM CATH WITH NO URINE OF YET. BED IS AT THE LOWEST LEVEL, SUCTION IS WORKING, BRAKES ARE LOCKED, 2 SIDE RAILS UP, AND CALL LIGHT IS WITHIN REACH.
[2021-11-09] MEDS ORDERED: D5W 1,000 ML IV SCH (19:30)
[2021-11-09] MEDS: IPRATROPIUM/ALBUTEROL SULFATE 3 ML AMPUL.NEB (DUONEB) INH SCH ×2 (19:39→23:26)
--- NOTE | 2021-11-09 20:40 | NUR ---
CALLED SYDNI BAER (PATIENT SON) FOR CONSENT FOR THE PICC AND TO CONSENT OVER THE PHONE PATIENT IS A DNR TO BE ABLE TO FILL OUT CODE STATUS FORM. SYDNI DID NOT STOCK PITCHER, LEFT A MESSAGE.
[2021-11-09 21:11] LABS: ANION GAP 11 (5-15); CALCIUM 7.8 mg/dL (8.4-11.0); CREATININE 2.33 mg/dL (0.55-1.30); GLUCOSE 158 mg/dL (70-99); POTASSIUM 3.3 mmol/L (3.5-5.1)
--- NOTE | 2021-11-09 21:22 | NUR ---
CALLED SYDNI AGAIN AND LEFT A MESSAGE IN REGARD TO THE CONSENT FORMS.
[2021-11-09 21:32] LABS: CHLORIDE 123 mmol/L (98-107); SODIUM SERUM 162 mmol/L (136-145); UREA NITROGEN, BLOOD 118 mg/dL (8-21)
--- NOTE | 2021-11-09 21:33 | NUR ---
CONSULTATION PAGED/CALLED Reason for Consultation: ELEVATED TROPONIN Person Who was Notified: SERG Consulting Physician: DR. CRONIN Nail Puller Specialty: CARDIOLOGY Ordering Physician: DR. TELLES Reason for Consultation: SEPSIS Person Who was Notified: SERG Consulting Physician: DR. Karly GONZALES Nail Puller Specialty: ID Ordering Physician: DR. TELLES Reason for Consultation: RESPIRATORY FAILURE Person Who was Notified: SERG Consulting Physician: DR. BALL Nail Puller Specialty: PULMONOLOGY Ordering Physician: DR. TELLES
[2021-11-09] MEDS ORDERED: POTASSIUM CHLORIDE 20 MEQ in NS 250 ML IV ONE (21:45)
[2021-11-09] MEDS ORDERED: KCL 20 mEq in 100 mL (PREMIX) 100 ML IV ONE (22:00)
--- NOTE | 2021-11-09 22:15 | NUR ---
ATTEMPTED TO INSERT VOGEL CATHETER BUT MEET RESISTANCE TWICE. UPON REMOVING CATHETER THERE WAS A LITTLE BLOOD. REAPPLIED NEW CONDOM CATHETER.
[2021-11-09] MEDS: D5/0.45 NS 1,000 ML IV SCH (22:23)
[2021-11-10] VITALS (23 sets, daily range): BP systolic 89–123
[2021-11-10] MEDS: INSULIN REGULAR, HUMAN 100 UNITS/ML, 10 ML VIAL (humuLIN R) SUBCUT PRN ×4 (00:37→18:38)
[2021-11-10] MEDS: ALBUMIN HUMAN 25% 100 ML IV SCH (00:59)
[2021-11-10] MEDS: D5/0.45 NS 1,000 ML IV SCH ×5 (03:18→20:27)
[2021-11-10] MEDS: IPRATROPIUM/ALBUTEROL SULFATE 3 ML AMPUL.NEB (DUONEB) INH SCH ×6 (03:48→23:10)
[2021-11-10] MEDS: PIPERACILLIN/TAZOBACTAM 2.25 GM in NS 50 ML IV SCH ×4 (06:01→23:11)
[2021-11-10 06:56] LABS: BASOPHILS % (AUTO) 0.1 % (0.0-2.0); HEMATOCRIT 33.4 % (36-54); HEMOGLOBIN 10.5 g/dL (14.0-18.0); LYMPHOCYTES # (AUTO) 1.4 K/uL (1.0-5.5); LYMPHOCYTES % (AUTO) 11.2 % (20.5-51.5); MEAN CORPUSCULAR HEMOGLOBIN 30 pg (27-31); MEAN CORPUSCULAR HGB CONC 31 % (32-36); MEAN CORPUSCULAR VOLUME 96 fL (79.0-98.0); MONOCYTES # (AUTO) 0.4 K/uL (0.0-1.0); MONOCYTES % (AUTO) 3.5 % (1.7-9.3); NEUTROPHILS # (AUTO) 10.7 K/uL (1.8-7.7); NEUTROPHILS % (AUTO) 85.2 % (40.0-70.0); PLATELET COUNT (AUTO) 149 K/uL (130-430); RED BLOOD CELL COUNT(AUTO) 3.47 MIL/uL (4.2-6.2); RED CELL DISTRIBUTION WIDTH 17.1 % (9.0-15.0); WHITE BLOOD COUNT (AUTO) 12.6 K/uL (4.8-10.8)
[2021-11-10 07:18] LABS: ALANINE AMINOTRANSFERASE 10 U/L (12-78); ALBUMIN 1.8 g/dL (3.4-4.8); ANION GAP 8 (5-15); ASPARTATE AMINOTRANSFERASE 18 U/L (10-37); CREATININE 2.17 mg/dL (0.55-1.30); GLUCOSE 272 mg/dL (70-99); PHOSPHORUS 2.7 mg/dL (2.7-4.5); TOTAL BILIRUBIN 0.8 mg/dL (0.0-1.0)
--- NOTE | 2021-11-10 07:30 | NUR ---
RECEIVED BEDSIDE REPORT FROM POLI BOYD. PATIENT IS NON RESPONSIVE TO VOICE BUT DOES GRIMACE WITH STERNAL RUB. PATIENT IS HAS A LEFT AC 18 G WITH NS RUNNING AT 200, LEVO RUNNING AT 0.47 MCG/KG/MIN. PATIENT HAS AN IO THAT THE DOCTOR WANTED TO LEAVE IN FOR NOW. ON A NON REBREATHER MASK AT 10L. PATIENT HAS SKIN TEARS ON BUTTOCKS THAT ARE COVERED WITH A FOAM DRESSING. PATIENT HAS A CONDOM CATH WITH NO URINE OF YET. BED IS AT THE LOWEST LEVEL, SUCTION IS WORKING, BRAKES ARE LOCKED, 2 SIDE RAILS UP, AND CALL LIGHT IS WITHIN REACH.
[2021-11-10 08:03] LABS: SODIUM SERUM 160 mmol/L (136-145)
[2021-11-10 08:05] LABS: CHLORIDE 122 mmol/L (98-107); POTASSIUM 2.6 mmol/L (3.5-5.1); UREA NITROGEN, BLOOD 108 mg/dL (8-21)
--- NOTE | 2021-11-10 08:40 | NUR ---
RT NOTES Pt did not tolerate 50% vmk, rn to put pt back on NRM
--- NOTE | 2021-11-10 10:00 | NUR ---
CHANNEL LIP WETTER ACSW Lilian responded to a generated "suicide risk" referral. ACSW reviewed Admission assessment and noted the following; Refer to Nuclear Weapons Custodian for Suicide Risk- YES ACSW reviewed notes, no references to SI. ACSW consulted with assigned RN Sai in ICU who confirmed patient is not a suicide risk. ACSW will continue to be available as needed
--- NOTE | 2021-11-10 10:00 | NUR ---
RECEIVED RETURN PHONE CALL FROM PATIENT'S FAMILY DR. CRONIN HAD CALLED AND LEFT A MESSAGE. ACCORDING TO THE NOTES, DR. CRONIN WAS CALLING TO REQUEST PERMISSION FOR NGT FOR TUBE FEEDING. EXPLAINED TO SYDNI AND KELLI (PATIENT'S FAMILY) THE IMPORTANCE OF TUBE FEEDING FOR NOURISHMENT. PER FAMILY, STATED HE'S VERY FRAIL, DOES NOT WANT ANY ADDITIONAL TUBES, EVEN IN THE NOSE TO THE STOMACH TO FEED PATIENT. THEY WANT TO KEEP HIM COMFORTABLE PER FAMILY. WILL ADDRESS CONCERNS WITH DR. TELLES. NOTIFIED DR. CRONIN OF RETURN PHONE CALL AND NOTIFIED HIM OF FAMILY'S DECISION TO KEEP EVERYTHING THE SAME, IN COMFORT MEASURES.
[2021-11-10] MEDS: POTASSIUM CHLORIDE 40 MEQ in NS 250 ML IV SCH ×2 (10:06→12:58)
[2021-11-10] MEDS ORDERED: ALBUMIN HUMAN 25% 50 ML IV PRN (12:30)
--- NOTE | 2021-11-10 17:35 | NUR ---
DR. TELLES TALKED TO FAMILY IN EXTENT IN REGARDS TO PATIENT'S STATUS AND TREATMENT. DISCUSSED WITH THEM ABOUT KEEPING THE PATIENT A CHEMICAL CODE TONIGHT AND FURTHER DECISIONS TOMORROW. PATIENT TO REMAIN ON IV FLUIDS, PRESSORS, ABX, AND ANYTHING CHEMICAL TO MAINTAIN HIM UNTIL NOTED OTHERWISE. DOCUMENTED CHANGE IN CODE STATUS REMAINS MODIFIED DNR/DNI PLACED AND SIGNED IN CHART.
--- NOTE | 2021-11-10 20:00 | NUR ---
FAMILY Family @ bedside.
--- NOTE | 2021-11-10 21:00 | NUR ---
TRANSFER OF CARE Care transferred to Kaur ASHTON.
--- NOTE | 2021-11-10 21:45 | NUR ---
DR LIZZY Davis here evaluating Pt.
[2021-11-11] VITALS (20 sets, daily range): BP systolic 88–145
[2021-11-11] MEDS: IPRATROPIUM/ALBUTEROL SULFATE 3 ML AMPUL.NEB (DUONEB) INH SCH ×4 (02:35→15:22)
[2021-11-11] MEDS: D5/0.45 NS 1,000 ML IV SCH ×2 (04:15→08:10)
[2021-11-11] MEDS: PIPERACILLIN/TAZOBACTAM 2.25 GM in NS 50 ML IV SCH ×3 (05:05→17:09)
[2021-11-11 07:18] LABS: CALCIUM 7.9 mg/dL (8.4-11.0); CREATININE 1.24 mg/dL (0.55-1.30); GLUCOSE 156 mg/dL (70-99); POTASSIUM 3.1 mmol/L (3.5-5.1); SODIUM SERUM 158 mmol/L (136-145); UREA NITROGEN, BLOOD 63 mg/dL (8-21)
--- NOTE | 2021-11-11 07:30 | NUR ---
RECEIVED BEDSIDE REPORT FROM POLI BOYD. PATIENT IS NON RESPONSIVE TO VOICE BUT DOES GRIMACE WITH STERNAL RUB. PATIENT IS HAS A LEFT AC 18 G WITH NS RUNNING AT 200, LEVO NOW OFF. ON A NON VENTI MASK AT 50%. PATIENT HAS SKIN TEARS ON BUTTOCKS THAT ARE COVERED WITH A FOAM DRESSING. PATIENT HAS A CONDOM CATH WITH NO URINE OF YET. BED IS AT THE LOWEST LEVEL, SUCTION IS WORKING, BRAKES ARE LOCKED, 2 SIDE RAILS UP, AND CALL LIGHT IS WITHIN REACH.
[2021-11-11 07:32] LABS: ALANINE AMINOTRANSFERASE 11 U/L (12-78); ALBUMIN 1.2 g/dL (3.4-4.8); ASPARTATE AMINOTRANSFERASE 17 U/L (10-37); THYROID STIMULATING HORMONE 0.59 uIu/mL (0.36-3.74); TOTAL BILIRUBIN 0.6 mg/dL (0.0-1.0)
[2021-11-11] MEDS: PANTOPRAZOLE SODIUM 40 MG/VIAL (PROTONIX) IVP SCH (08:11)
[2021-11-11 08:13] LABS: ANION GAP 8 (5-15)
[2021-11-11 08:41] LABS: CHLORIDE 123 mmol/L (98-107)
[2021-11-11 10:44] LABS: CHOLESTEROL 50 mg/dL (<200); HDL CHOLESTEROL 16 mg/dL (>45); LDL CHOLESTEROL 20 mg/dL (<100); TRIGLYCERIDES 67 mg/dL (30-150)
[2021-11-11] MEDS: INSULIN REGULAR, HUMAN 100 UNITS/ML, 10 ML VIAL (humuLIN R) SUBCUT PRN (12:12)
[2021-11-11 12:13] LABS: EOSINOPHILS % (AUTO) 0.8 % (0.0-4.0); HEMATOCRIT 30.8 % (36-54); HEMOGLOBIN 9.8 g/dL (14.0-18.0); LYMPHOCYTES % (AUTO) 7.9 % (20.5-51.5); MEAN CORPUSCULAR HEMOGLOBIN 31 pg (27-31); MEAN CORPUSCULAR HGB CONC 32 % (32-36); MEAN CORPUSCULAR VOLUME 97 fL (79.0-98.0); MONOCYTES % (AUTO) 2.7 % (1.7-9.3); NEUTROPHILS % (AUTO) 88.4 % (40.0-70.0); PLATELET COUNT (AUTO) 122 K/uL (130-430); RED BLOOD CELL COUNT(AUTO) 3.19 MIL/uL (4.2-6.2); RED CELL DISTRIBUTION WIDTH 16.5 % (9.0-15.0)
[2021-11-11 12:14] LABS: BASOPHILS % (AUTO) 0.2 % (0.0-2.0); EOSINOPHILS # (AUTO) 0.1 K/uL (0.0-0.4); LYMPHOCYTES # (AUTO) 0.9 K/uL (1.0-5.5); MONOCYTES # (AUTO) 0.3 K/uL (0.0-1.0); NEUTROPHILS # (AUTO) 9.6 K/uL (1.8-7.7); WHITE BLOOD COUNT (AUTO) 10.9 K/uL (4.8-10.8)
[2021-11-11] MEDS: KCL 20 mEq in D5W 1000 mL 1,000 ML IV SCH ×2 (12:18→21:11)
[2021-11-11] MEDS ORDERED: ALBUMIN HUMAN 25% 100 ML IV ONE (13:00)
--- NOTE | 2021-11-11 13:24 | NUR ---
Dietitian Recommendations * Nutrition Consult if/when alternative nutrition support is warranted LP, MS, RD Please refer to Nutrition Assessment for details. Addendum: 11/11/21 at [address] Amended: Links added.
[2021-11-11] MEDS ORDERED: POTASSIUM CHLORIDE 40 MEQ, LIDOCAINE JECT 2% PF 100 MG 50 MG in NS 250 ML IV ONE (14:00)
--- NOTE | 2021-11-11 18:30 | NUR ---
NGT TUBE PLACED AND TOLERATED WELL. CXR ORDERED TO CONFIRM PLACEMENT.
[2021-11-12] VITALS (7 sets, daily range): BP systolic 121–156
[2021-11-12] MEDS: PIPERACILLIN/TAZOBACTAM 2.25 GM in NS 50 ML IV SCH ×4 (00:23→17:02)
[2021-11-12] MEDS: IPRATROPIUM/ALBUTEROL SULFATE 3 ML AMPUL.NEB (DUONEB) INH SCH ×7 (00:44→23:06)
[2021-11-12 07:56] LABS: ALANINE AMINOTRANSFERASE 11 U/L (12-78); ALBUMIN 1.6 g/dL (3.4-4.8); ANION GAP 6 (5-15); ASPARTATE AMINOTRANSFERASE 22 U/L (10-37); CALCIUM 8.3 mg/dL (8.4-11.0); CREATININE 1.01 mg/dL (0.55-1.30); GLUCOSE 132 mg/dL (70-99); PHOSPHORUS 1.4 mg/dL (2.7-4.5); POTASSIUM 3.6 mmol/L (3.5-5.1); SODIUM SERUM 154 mmol/L (136-145); TOTAL BILIRUBIN 0.8 mg/dL (0.0-1.0); UREA NITROGEN, BLOOD 36 mg/dL (8-21)
[2021-11-12] MEDS: KCL 20 mEq in D5W 1000 mL 1,000 ML IV SCH ×2 (08:00→17:41)
[2021-11-12 08:01] LABS: BASOPHILS % (AUTO) 0.1 % (0.0-2.0); EOSINOPHILS # (AUTO) 0.1 K/uL (0.0-0.4); EOSINOPHILS % (AUTO) 0.7 % (0.0-4.0); HEMATOCRIT 29.2 % (36-54); LYMPHOCYTES # (AUTO) 1.2 K/uL (1.0-5.5); LYMPHOCYTES % (AUTO) 10.7 % (20.5-51.5); MEAN CORPUSCULAR VOLUME 94 fL (79.0-98.0); MONOCYTES # (AUTO) 0.4 K/uL (0.0-1.0); MONOCYTES % (AUTO) 3.5 % (1.7-9.3); NEUTROPHILS # (AUTO) 9.6 K/uL (1.8-7.7); PLATELET COUNT (AUTO) 100 K/uL (130-430); RED BLOOD CELL COUNT(AUTO) 3.11 MIL/uL (4.2-6.2); RED CELL DISTRIBUTION WIDTH 16.3 % (9.0-15.0); WHITE BLOOD COUNT (AUTO) 11.3 K/uL (4.8-10.8)
--- NOTE | 2021-11-12 08:10 | NUR ---
Patient resting comfortably in bed at this time with eyes closed and no distress noted.
[2021-11-12] MEDS: PANTOPRAZOLE SODIUM 40 MG/VIAL (PROTONIX) IVP SCH (08:22)
--- NOTE | 2021-11-12 08:22 | NUR ---
Scheduled IVP medication given per order. Patient stable.
[2021-11-12 10:06] LABS: CHLORIDE 120 mmol/L (98-107)
--- NOTE | 2021-11-12 10:55 | NUR ---
Patient stable; resting quietly in bed with eyes closed and no respiratory distress noted.
--- NOTE | 2021-11-12 12:33 | NUR ---
Scheduled IV abx given per order. Checked blood sugar: 123 mg/dl - no coverage required. Patient stable at this time.
[2021-11-12 12:35] LABS: HEMOGLOBIN 9.3 g/dL (14.0-18.0); MEAN CORPUSCULAR HEMOGLOBIN 30 pg (27-31); MEAN CORPUSCULAR HGB CONC 32 % (32-36)
--- NOTE | 2021-11-12 13:29 | NUR ---
Nutrition Consult and F/U RD received Nutrition Consult for TF 11/11/21 9415. Pt was seen and assessed by RD yesterday, 11/11 for initial Nutrition Assessment. New TF rec for Nepro at 40 ml/hr (goal), Free Water Flush: 100 ml Q6h via NGT. This provides 1728 kcal/day, 78 gm protein/day, 1098 ml free water/day, which meets 91% of upper end of estimated caloric needs and 95% of upper end of estimated protein needs. RD called pt's primary RN and relayed new TF rec. Please refer to Nutrition Assessment 11/11 for details.
[2021-11-12] MEDS ORDERED: K PHOS 30 MM in NS 250 ML IV ONE ×2 (15:00→17:00)
--- NOTE | 2021-11-12 15:15 | NUR ---
Skin tear on right forearm cleansed with normal saline and covered with non-adhesive dressing and tegaderm. Emptied 1150mls of clear, light hernan urine from drainage bag. Patient stable at this time.
--- NOTE | 2021-11-12 17:02 | NUR ---
Scheduled IV abx given per order. Patient cleaned and repositioned. Started G-tube feeding as well: Nepro 1.8 at 40ml/hr via NGT. Addendum: 11/12/21 at 1706 by Cassie Ray RN Checked blood sugar: 125 mg/dl - no coverage required.
--- NOTE | 2021-11-12 17:05 | NUR ---
Checked blood sugar: 125 mg/dl - no cover required.
--- NOTE | 2021-11-12 18:55 | NUR ---
Patient stable throughout shift.
--- NOTE | 2021-11-12 19:00 | NUR ---
OPENING received pt from day nurse report giving at bedside. pt stable at this time. pt is non verbal and disoriented at this time no able to follow simple commends. vitals taken and within normal limits resp even while on ventri mask at 12L 02 97%. pt has NGTUBE in place receiving nephro @ 4occ/hr pt tolerating well with no residuals. pt has condom cath in place with clear yellow urine. pt was reposition for comfort and due to wounds on sacral. dressing clean and intact. skin warm to touch and clean and dry. pt also has bilateral edemas to hands, extremities elevated. call light in reach and bed to lowest position,
[2021-11-13] MEDS: PIPERACILLIN/TAZOBACTAM 2.25 GM in NS 50 ML IV SCH ×4 (00:16→16:59)
[2021-11-13 01:42] VITALS: BP_SYST 108
[2021-11-13] MEDS: IPRATROPIUM/ALBUTEROL SULFATE 3 ML AMPUL.NEB (DUONEB) INH SCH ×6 (03:15→23:33)
[2021-11-13] MEDS: KCL 20 mEq in D5W 1000 mL 1,000 ML IV SCH ×2 (04:32→16:58)
--- NOTE | 2021-11-13 07:30 | NUR ---
RECEIVED PT FROM POLI HOPE. PT IS AAXO1 TO SELF, RESPONDS TO PAINFUL STIMULI ONLY. FINDINGS REPORTED TO POLI VARELASTEAM FLATTENER. PT RECEIVING BREATHING RX. ON VENTI MASK AT 12LPM. RR 36. PT REPOSITIONED. NGT IN PLACE WITH NEPRO RUNNING AT 40ML/MIN. DISTAL PULSES WEAK, SKIN COOL. PT HAS BUE 3+ EDEMA. CONDOM CATH IN PLACE DRAINING CLEAR YELLOW URINE. PT HAS LW 18 WITH D5 K+20 MEQ RUNNING AT 100ML/HOUR. ABDOMEN SOFT, NONTENDER, NONDISTENDED. BOWEL SOUNDS HYPOACTIVE. NO S/S OF PAIN NOTED. SIDERAILS UP X2, BED IN LOWEST POSITION.
[2021-11-13 07:51] LABS: BASOPHILS % (AUTO) 0.2 % (0.0-2.0); EOSINOPHILS # (AUTO) 0.1 K/uL (0.0-0.4); EOSINOPHILS % (AUTO) 0.5 % (0.0-4.0); HEMATOCRIT 28.8 % (36-54); LYMPHOCYTES % (AUTO) 9.4 % (20.5-51.5); MEAN CORPUSCULAR VOLUME 92 fL (79.0-98.0); MONOCYTES # (AUTO) 0.3 K/uL (0.0-1.0); MONOCYTES % (AUTO) 3.2 % (1.7-9.3); NEUTROPHILS # (AUTO) 9.5 K/uL (1.8-7.7); NEUTROPHILS % (AUTO) 86.7 % (40.0-70.0); PLATELET COUNT (AUTO) 90 K/uL (130-430); RED BLOOD CELL COUNT(AUTO) 3.12 MIL/uL (4.2-6.2); WHITE BLOOD COUNT (AUTO) 10.9 K/uL (4.8-10.8)
[2021-11-13 08:08] LABS: ALANINE AMINOTRANSFERASE 10 U/L (12-78); ALBUMIN 1.4 g/dL (3.4-4.8); ANION GAP 7 (5-15); ASPARTATE AMINOTRANSFERASE 22 U/L (10-37); CALCIUM 7.7 mg/dL (8.4-11.0); CHLORIDE 116 mmol/L (98-107); CREATININE 0.92 mg/dL (0.55-1.30); GLUCOSE 147 mg/dL (70-99); POTASSIUM 3.4 mmol/L (3.5-5.1); SODIUM SERUM 150 mmol/L (136-145); TOTAL BILIRUBIN 0.5 mg/dL (0.0-1.0); UREA NITROGEN, BLOOD 27 mg/dL (8-21)
[2021-11-13] MEDS: PANTOPRAZOLE SODIUM 40 MG/VIAL (PROTONIX) IVP SCH (09:04)
--- NOTE | 2021-11-13 09:08 | NUR ---
SCHEDULED MEDS GIVEN AND TOLERATED WELL. PT REPOSITIONED. BILATERAL HEEL PROTECTORS PLACED. ASPIRATIONS PRECAUTIONS IN PLACE.
--- NOTE | 2021-11-13 10:00 | NUR ---
SCHEDULED MEDS GIVEN AND TOLERATED WELL. 50ML RESIDUAL NOTED FROM T/F, AND REPLACED. ASPIRATION PRECAUTIONS MAINTAINED.
[2021-11-13 12:00] VITALS: BP_SYST 121
[2021-11-13] MEDS ORDERED: POTASSIUM CHLORIDE 20 MEQ/PKT PACKET PO ONE (12:00)
[2021-11-13] MEDS ORDERED: ALBUMIN HUMAN 25% 200 ML IV ONE (12:00)
[2021-11-13] MEDS ORDERED: ERGOCALCIFEROL 8000 UNITS/ML ORAL SOLUTION, 60 ML BOTTLE GT ONE (12:15)
[2021-11-13] MEDS: ERGOCALCIFEROL 8000 UNITS/ML ORAL SOLUTION, 60 ML BOTTLE GT SCH (13:21)
[2021-11-13 16:00] VITALS: BP_SYST 115
--- NOTE | 2021-11-13 16:00 | NUR ---
WOUND CARE PREFORMED ON SACRAL COCCYX. PT GIVEN PARTIAL BED BATH AND GOWN AND LINEN CHANGE. REPOSITIONED FOR COMFORT. ASPIRATION PRECAUTIONS MAINTAINED.
--- NOTE | 2021-11-13 18:01 | NUR ---
Nutrition Note SHANNON modified TF order from TwoCalHN to Nepro TF formula as TwoCalHN is not readily available at [facility]. Nutrition Consult for TF received 11/11/211800. Pt was seen and assessed by SHANNON 11/11 for initial Nutrition Assessment. New TF rec for Nepro at 40 ml/hr (goal), Free Water Flush: 100 ml Q6h via NGT. This provides 1728 kcal/day, 78 gm protein/day, 1098 ml free water/day, which meets 91% of upper end of estimated caloric needs and 95% of upper end of estimated protein needs. Please refer to Nutrition Assessment 11/11 for details. Addendum: 11/13/21 at [address] CORRECTION: Per physician, Free Water Flush: 50 ML Q6H -- yield of 898 ml free water/day w/ TF combined.
--- NOTE | 2021-11-13 19:19 | NUR ---
ALL CARE ENDORSED TO POLI HOPE. ALL QUESTIONS AND ADDRESSED
[2021-11-13 19:43] LABS: BILIRUBIN,URINE NEGATIVE (NEGATIVE); BLOOD, URINE 3+ (NEGATIVE); CLARITY/URINE SL CLOUDY (CLEAR); COLOR,URINE YELLOW (YELLOW); GLUCOSE,URINE TRACE (NEGATIVE); KETONES,URINE NEGATIVE (NEGATIVE); LEUKOCYTE ESTERASE ,URINE 2+ (NEGATIVE); NITRITE, URINE NEGATIVE (NEGATIVE); PROTEIN URINE 1+ (NEGATIVE); UROBILINOGEN,URINE 0.2 (0.2-1.0)
[2021-11-13 20:01] LABS: BACTERIA,URINE RARE /HPF (None Seen); RBC,URINE 50-80 /HPF (0-3); WBC,URINE 20-50 /HPF (0-3)
[2021-11-13 20:02] LABS: MUCUS,URINE 1+ /LPF (None Seen); YEAST,URINE Few /HPF (None Seen)
[2021-11-13 21:43] VITALS: BP_SYST 142
[2021-11-14] VITALS: BP_SYST 157
[2021-11-14] MEDS: PIPERACILLIN/TAZOBACTAM 2.25 GM in NS 50 ML IV SCH (00:41)
[2021-11-14] MEDS: IPRATROPIUM/ALBUTEROL SULFATE 3 ML AMPUL.NEB (DUONEB) INH SCH ×6 (05:13→23:12)
[2021-11-14 08:00] VITALS: BP_SYST 152
[2021-11-14 08:45] LABS: BASOPHILS % (AUTO) 0.2 % (0.0-2.0); EOSINOPHILS # (AUTO) 0.1 K/uL (0.0-0.4); EOSINOPHILS % (AUTO) 0.9 % (0.0-4.0); HEMATOCRIT 27.4 % (36-54); LYMPHOCYTES % (AUTO) 8.2 % (20.5-51.5); MEAN CORPUSCULAR VOLUME 92 fL (79.0-98.0); MONOCYTES # (AUTO) 0.4 K/uL (0.0-1.0); MONOCYTES % (AUTO) 3.4 % (1.7-9.3); NEUTROPHILS # (AUTO) 10.6 K/uL (1.8-7.7); NEUTROPHILS % (AUTO) 87.3 % (40.0-70.0); PLATELET COUNT (AUTO) 91 K/uL (130-430); RED BLOOD CELL COUNT(AUTO) 2.97 MIL/uL (4.2-6.2); RED CELL DISTRIBUTION WIDTH 15.8 % (9.0-15.0); WHITE BLOOD COUNT (AUTO) 12.2 K/uL (4.8-10.8)
[2021-11-14 08:51] LABS: ALANINE AMINOTRANSFERASE 13 U/L (12-78); ALBUMIN 2.1 g/dL (3.4-4.8); ANION GAP 7 (5-15); ASPARTATE AMINOTRANSFERASE 21 U/L (10-37); CALCIUM 8.2 mg/dL (8.4-11.0); CHLORIDE 111 mmol/L (98-107); CREATININE 0.84 mg/dL (0.55-1.30); GLUCOSE 198 mg/dL (70-99); PHOSPHORUS 2.1 mg/dL (2.7-4.5); POTASSIUM 3.8 mmol/L (3.5-5.1); SODIUM SERUM 145 mmol/L (136-145); TOTAL BILIRUBIN 0.7 mg/dL (0.0-1.0); UREA NITROGEN, BLOOD 23 mg/dL (8-21)
[2021-11-14] MEDS: PANTOPRAZOLE SODIUM 40 MG/VIAL (PROTONIX) IVP SCH (09:23)
[2021-11-14] MEDS: ERGOCALCIFEROL 8000 UNITS/ML ORAL SOLUTION, 60 ML BOTTLE GT SCH (09:24)
[2021-11-14] MEDS: POTASSIUM CHLORIDE 20 MEQ/PKT PACKET PO SCH (09:25)
[2021-11-14 12:00] VITALS: BP_SYST 149
[2021-11-14] MEDS: KCL 20 mEq in D5W 1000 mL 1,000 ML IV SCH (12:06)
[2021-11-14 15:43] VITALS: BP_SYST 157
--- NOTE | 2021-11-14 15:55 | NUR ---
PT LYING IN BED QUIETLY. HOB ELEVATED SEMIFOWLER'S POSITION. RESPIRATIONS EVEN ET UNLABORED. PT HAS REQUIRED A LOT OF FREQUENT ORAL SUCTIONING THROUGHOUT THE SHIFT. NO S/S ACUTE DISTRESS NOTED. PT HAS A FACE MASK IN USE. FAMILY VISITING AT BEDSIDE. NGT FEEDING INCREASED BACK TO 40 ML/HR. WILL CONTINUE TO MONITOR PT.
--- NOTE | 2021-11-14 16:45 | NUR ---
RT NOTES 1645 NT sx'd pt. (small/thick/ yellow). pt saturating 96%. improved aeration post suctioning. RN Carlene aware.
--- NOTE | 2021-11-14 19:25 | NUR ---
OPENING NOTE PT IS SEMIFOWLERS IN BED WITH EYES CLOSED. NO APPARENT SIGNS OF DISTRESS NOTED AT THIS TIME. BED IS IN LOWEST POSITION WITH FALL AND SAFETY PRECAUTIONS IN PLACE. NG TUBE PLACEMENT CONFIRMED, FEEDING RESUMED ORDERED. CALL LIGHT IS WITHIN REACH.
--- NOTE | 2021-11-14 21:30 | NUR ---
PT CARE PERFORMED PT WAS GIVEN A BED BATH. WOUND CARE PERFORMED. ORAL CARE PERFORMED.
[2021-11-15] VITALS: BP_SYST 110
[2021-11-15] MEDS: IPRATROPIUM/ALBUTEROL SULFATE 3 ML AMPUL.NEB (DUONEB) INH SCH ×6 (04:05→23:23)
--- NOTE | 2021-11-15 05:59 | NUR ---
CONSULTATION PAGED/CALLED Reason for Consultation: aloc Person Who was Notified: dr pinedo via text Consulting Physician: dr pinedo Commodity Director Specialty: Ordering Physician: kingsley
[2021-11-15 07:29] LABS: ANION GAP 5 (5-15); CALCIUM 8.2 mg/dL (8.4-11.0); CHLORIDE 107 mmol/L (98-107); CREATININE 0.73 mg/dL (0.55-1.30); GLUCOSE 141 mg/dL (70-99); POTASSIUM 3.8 mmol/L (3.5-5.1); SODIUM SERUM 139 mmol/L (136-145); UREA NITROGEN, BLOOD 21 mg/dL (8-21)
--- NOTE | 2021-11-15 07:35 | NUR ---
CLOSING NOTE PT IS LYING IN BED WITH EYES CLOSED. NO APPARENT SIGNS OF DISTRESS NOTED AT THIS TIME. BED IS IN THE LOWEST POSITION WITH FALL AND SAFETY PRECAUTIONS IN PLACE. CALL LIGHT IS WITHIN REACH. TUBE FEEDING RUNNING ORDERED. IV FLUIDS RUNNING ORDERED
[2021-11-15 07:38] LABS: BASOPHILS % (AUTO) 0.3 % (0.0-2.0); EOSINOPHILS # (AUTO) 0.1 K/uL (0.0-0.4); LYMPHOCYTES # (AUTO) 1.1 K/uL (1.0-5.5); LYMPHOCYTES % (AUTO) 9.5 % (20.5-51.5); MEAN CORPUSCULAR VOLUME 91 fL (79.0-98.0); MONOCYTES # (AUTO) 0.5 K/uL (0.0-1.0); NEUTROPHILS # (AUTO) 9.7 K/uL (1.8-7.7); NEUTROPHILS % (AUTO) 85.2 % (40.0-70.0); PLATELET COUNT (AUTO) 99 K/uL (130-430); RED BLOOD CELL COUNT(AUTO) 2.87 MIL/uL (4.2-6.2); RED CELL DISTRIBUTION WIDTH 15.8 % (9.0-15.0); WHITE BLOOD COUNT (AUTO) 11.4 K/uL (4.8-10.8)
[2021-11-15 08:00] VITALS: BP_SYST 110
[2021-11-15 08:30] VITALS: BP_SYST 110
[2021-11-15] MEDS: PANTOPRAZOLE SODIUM 40 MG/VIAL (PROTONIX) IVP SCH (09:59)
[2021-11-15] MEDS: POTASSIUM CHLORIDE 20 MEQ/PKT PACKET PO SCH (09:59)
[2021-11-15] MEDS: ERGOCALCIFEROL 8000 UNITS/ML ORAL SOLUTION, 60 ML BOTTLE GT SCH (10:00)
[2021-11-15] MEDS: KCL 20 mEq in D5W 1000 mL 1,000 ML IV SCH (10:01)
--- NOTE | 2021-11-15 11:32 | NUR ---
PATIENT WAS SEEN FOR PHYSICAL THERAPY EVALUATION. HE DOES NOT RESPOND TO STIMULI. HE IS NOT APPROPRIATE FOR PHYSICAL THERAPY. NURSING SHOULD CONTINUE TO PERFORM PASSIVE RANGE OF MOTION TO HIS EXTREMITIES PART OF HIS DAILY CARE. AND CONTINUE WITH TURNING FOR PRESSURE RELIEF.
[2021-11-15 12:35] VITALS: BP_SYST 119
[2021-11-15] MEDS ORDERED: CEFEPIME 1 GM in D5W 50 ML IV ONE (16:00)
[2021-11-15 16:45] VITALS: BP_SYST 142
--- NOTE | 2021-11-15 19:00 | NUR ---
received pt resting in bed .requires frequent trach suction . ivf in progress and Jevity via Peg tube
[2021-11-15 20:00] VITALS: BP_SYST 133
[2021-11-15] MEDS: metroNIDAZOLE 500 mg/NS 100 ML IV SCH (21:04)
[2021-11-15] MEDS: CEFEPIME 1 GM in D5W 50 ML IV SCH (21:37)
[2021-11-16] VITALS: BP_SYST 134
--- NOTE | 2021-11-16 | NUR ---
meds given pt had a BM cleaned and linen changed
[2021-11-16] MEDS: IPRATROPIUM/ALBUTEROL SULFATE 3 ML AMPUL.NEB (DUONEB) INH SCH ×5 (03:37→20:35)
[2021-11-16] MEDS: KCL 20 mEq in D5W 1000 mL 1,000 ML IV SCH (04:06)
--- NOTE | 2021-11-16 06:00 | NUR ---
due Meds administered ,no change, please see assessment
[2021-11-16 07:04] LABS: BASOPHILS % (AUTO) 0.2 % (0.0-2.0); EOSINOPHILS # (AUTO) 0.1 K/uL (0.0-0.4); HEMATOCRIT 25.3 % (36-54); LYMPHOCYTES % (AUTO) 9.6 % (20.5-51.5); MEAN CORPUSCULAR VOLUME 91 fL (79.0-98.0); MONOCYTES # (AUTO) 0.6 K/uL (0.0-1.0); MONOCYTES % (AUTO) 5.9 % (1.7-9.3); NEUTROPHILS # (AUTO) 8.6 K/uL (1.8-7.7); NEUTROPHILS % (AUTO) 83.3 % (40.0-70.0); PLATELET COUNT (AUTO) 122 K/uL (130-430); RED BLOOD CELL COUNT(AUTO) 2.79 MIL/uL (4.2-6.2); RED CELL DISTRIBUTION WIDTH 15.8 % (9.0-15.0); WHITE BLOOD COUNT (AUTO) 10.3 K/uL (4.8-10.8)
[2021-11-16 07:40] LABS: ALANINE AMINOTRANSFERASE 20 U/L (12-78); ALBUMIN 1.5 g/dL (3.4-4.8); ANION GAP 3 (5-15); ASPARTATE AMINOTRANSFERASE 24 U/L (10-37); CALCIUM 8.2 mg/dL (8.4-11.0); CHLORIDE 105 mmol/L (98-107); CREATININE 0.72 mg/dL (0.55-1.30); GLUCOSE 157 mg/dL (70-99); POTASSIUM 4.3 mmol/L (3.5-5.1); SODIUM SERUM 137 mmol/L (136-145); TOTAL BILIRUBIN 0.4 mg/dL (0.0-1.0); UREA NITROGEN, BLOOD 24 mg/dL (8-21)
[2021-11-16] MEDS: metroNIDAZOLE 500 mg/NS 100 ML IV SCH ×2 (09:00→20:47)
[2021-11-16] MEDS: PANTOPRAZOLE SODIUM 40 MG/VIAL (PROTONIX) IVP SCH (09:00)
[2021-11-16] MEDS: POTASSIUM CHLORIDE 20 MEQ/PKT PACKET PO SCH (09:00)
[2021-11-16] MEDS: ERGOCALCIFEROL 8000 UNITS/ML ORAL SOLUTION, 60 ML BOTTLE GT SCH (09:00)
[2021-11-16] MEDS: CEFEPIME 1 GM in D5W 50 ML IV SCH ×2 (10:00→21:49)
[2021-11-16 11:10] VITALS: BP_SYST 111
[2021-11-16 15:50] VITALS: BP_SYST 103
--- NOTE | 2021-11-16 19:00 | NUR ---
I received pt resting in bed ,has IVF @50 ml/h, Nepro @40 ml/h via NG tube.vitals updated are within normal limit
[2021-11-16 20:00] VITALS: BP_SYST 110
[2021-11-17] MEDS: KCL 20 mEq in D5W 1000 mL 1,000 ML IV SCH ×2 (00:06→20:06)
[2021-11-17] MEDS: IPRATROPIUM/ALBUTEROL SULFATE 3 ML AMPUL.NEB (DUONEB) INH SCH ×6 (02:04→23:57)
[2021-11-17 04:00] VITALS: BP_SYST 136
[2021-11-17 08:00] VITALS: BP_SYST 118
[2021-11-17] MEDS: FLUCONAZOLE 200 mg/ NS 100 ML IV SCH (08:41)
[2021-11-17] MEDS: POTASSIUM CHLORIDE 20 MEQ/PKT PACKET PO SCH (08:41)
[2021-11-17] MEDS: PANTOPRAZOLE SODIUM 40 MG/VIAL (PROTONIX) IVP SCH (08:42)
[2021-11-17] MEDS: ERGOCALCIFEROL 8000 UNITS/ML ORAL SOLUTION, 60 ML BOTTLE GT SCH (08:42)
[2021-11-17] MEDS: metroNIDAZOLE 500 mg/NS 100 ML IV SCH ×2 (08:44→21:20)
[2021-11-17] MEDS: CEFEPIME 1 GM in D5W 50 ML IV SCH ×2 (10:48→21:20)
[2021-11-17 12:00] VITALS: BP_SYST 130
--- NOTE | 2021-11-17 14:05 | NUR ---
Discharge Planning: DCP faxed pt referral to [facility] [phone] for palliative care. DCP to follow up
[2021-11-17 16:00] VITALS: BP_SYST 122
--- NOTE | 2021-11-17 18:19 | NUR ---
Shift Summary: patient is AAOX0. vitals are stable. medication given as directed during shift. tube feeding setting placed as ordered. wound dressing changed. patients family updated regarding plan to discharge to longterm facility. patients family state they do not have any questions or concerns at this time. q2turn done during shift. call light within reach. bed set to low and locked. will endorse to on coming nurse.
[2021-11-17 19:00] VITALS: BP_SYST 128
--- NOTE | 2021-11-17 19:00 | NUR ---
I received pt resting in bed, oriented to self .has Jevity feed via NGT.vitals done BPS 128/62 HR 87 RR-18 SPO2-100% Has unstable wound to sacral region
--- NOTE | 2021-11-17 23:00 | NUR ---
vitals done cares given.pt resting in bed
[2021-11-18] MEDS: IPRATROPIUM/ALBUTEROL SULFATE 3 ML AMPUL.NEB (DUONEB) INH SCH ×5 (03:30→19:41)
--- NOTE | 2021-11-18 06:00 | NUR ---
bed bathed with CHG bed bathed and linen changed oral cares given.vitals are within normal limit
[2021-11-18 07:03] LABS: ALANINE AMINOTRANSFERASE 22 U/L (12-78); ALBUMIN 1.4 g/dL (3.4-4.8); ANION GAP 5 (5-15); ASPARTATE AMINOTRANSFERASE 26 U/L (10-37); CALCIUM 8.6 mg/dL (8.4-11.0); CHLORIDE 103 mmol/L (98-107); CREATININE 0.69 mg/dL (0.55-1.30); GLUCOSE 160 mg/dL (70-99); PHOSPHORUS 3.2 mg/dL (2.7-4.5); POTASSIUM 3.8 mmol/L (3.5-5.1); SODIUM SERUM 135 mmol/L (136-145); TOTAL BILIRUBIN 0.4 mg/dL (0.0-1.0); UREA NITROGEN, BLOOD 26 mg/dL (8-21)
--- NOTE | 2021-11-18 07:30 | NUR ---
OPENING NOTES: PATIENT IS RESTING IN BED QUIETLY. LETHARGIC, NONVERBAL, ONLY WITHDRAW TO PAIN. OPEN EYES TO TACTILE STIMULI. NO ADDITIONAL PAIN OR DISTRESS NOTED AT THIS TIME. EXPLAINED POC BUT PATIENT DOES NOT SEEM TO COMPREHEND WHAT IS BEING SAID DUE TO COGNITIVE STATUS. R NGT INFUSING NEPHRO AT 40CC/HR AT GOAL. NO RESIDUAL NOTED. PLACEMENT CHECKED. IV TO LFA AND LAC INTACT AND PATENT. BED IN LOW AND LOCK POSITION. BED ALARM ON. CALL LIGHT AND BEDSIDE TABLE WITHIN REACH. STABLE CONDITION.
[2021-11-18 08:04] LABS: BASOPHILS % (AUTO) 0.3 % (0.0-2.0); EOSINOPHILS # (AUTO) 0.1 K/uL (0.0-0.4); EOSINOPHILS % (AUTO) 0.5 % (0.0-4.0); HEMATOCRIT 25.1 % (36-54); LYMPHOCYTES # (AUTO) 1.1 K/uL (1.0-5.5); LYMPHOCYTES % (AUTO) 11.7 % (20.5-51.5); MEAN CORPUSCULAR VOLUME 91 fL (79.0-98.0); MONOCYTES # (AUTO) 0.6 K/uL (0.0-1.0); MONOCYTES % (AUTO) 6.4 % (1.7-9.3); NEUTROPHILS # (AUTO) 7.7 K/uL (1.8-7.7); NEUTROPHILS % (AUTO) 81.1 % (40.0-70.0); PLATELET COUNT (AUTO) 129 K/uL (130-430); RED BLOOD CELL COUNT(AUTO) 2.76 MIL/uL (4.2-6.2); RED CELL DISTRIBUTION WIDTH 15.9 % (9.0-15.0); WHITE BLOOD COUNT (AUTO) 9.5 K/uL (4.8-10.8)
[2021-11-18 08:35] VITALS: BP_SYST 109
[2021-11-18] MEDS: CEFEPIME 1 GM in D5W 50 ML IV SCH ×2 (08:38→22:03)
[2021-11-18] MEDS: PANTOPRAZOLE SODIUM 40 MG/VIAL (PROTONIX) IVP SCH (08:38)
[2021-11-18] MEDS: POTASSIUM CHLORIDE 20 MEQ/PKT PACKET PO SCH (08:38)
[2021-11-18] MEDS: ERGOCALCIFEROL 8000 UNITS/ML ORAL SOLUTION, 60 ML BOTTLE GT SCH (08:53)
--- NOTE | 2021-11-18 09:00 | NUR ---
WOUND CARE: CLEANSE COCCYX UNSTAGEABLE WOUND (ESCHAR) WITH NS, PADDED DRY WITH STERILE GAUZE, APPLIED BARRIER CREAM AROUND WOUND, AND COVER WITH OPTIFOAM.
[2021-11-18] MEDS: metroNIDAZOLE 500 mg/NS 100 ML IV SCH ×2 (09:32→22:03)
[2021-11-18 11:44] VITALS: BP_SYST 109
[2021-11-18 12:08] VITALS: BP_SYST 102
--- NOTE | 2021-11-18 12:37 | NUR ---
Discharge Planning: DCP faxed pt referral to [facility] [phone] for IV meds. DCP to follow up. Addendum: 11/18/21 at 1351 by Briana Pierre DP DCP faxed pt new dc order for IV meds to [facility] [phone] requesting auth. DIMPLEP{ to follow up.
[2021-11-18 16:10] VITALS: BP_SYST 116
--- NOTE | 2021-11-18 18:00 | NUR ---
NEW BOTTLE FEEDING HANGED. NEW BOTTLE FEEDING HANGED (NEPRO), NO RESIDUAL NOTED, AND FLUSHED WELL WITH 50CC Q6 HRS. HOB ABOVE 30 DEGREE AT ALL TIMES.
--- NOTE | 2021-11-18 18:48 | NUR ---
CLOSING NOTES: PATIENT IS RESTING IN BED QUIETLY, ASLEEP. NO ADDITIONAL DISTRESS OR PAIN NOTED AT THIS TIME. STABLE CONDITION.
[2021-11-18 20:00] VITALS: BP_SYST 112
--- NOTE | 2021-11-18 20:00 | NUR ---
OPENING NOTE Patient is A&O x0 with no response to name or voice. Patient on tele with no events noted. Patient on oxygen via NC at 3L with sats at 100. Patient has NG tube to left nares with Nepro at 40ml/hr. Patient is incontinent of bowel and bladder. Patient has IV in L hand and secondary in L forearm with fluids infusing. Patient's IVF is D5W with 20 mEq at 50ml/hr. All safety measures in place will continue to monitor.
[2021-11-18] MEDS: KCL 20 mEq in D5W 1000 mL 1,000 ML IV SCH (20:05)
--- NOTE | 2021-11-18 20:30 | NUR ---
FAMILY AT BEDSIDE Family by the name of My at bedside. Wanted to know patient's progress which the nurse discussed with family. Family wanted to know if patient was being seen by neuro and if the patient had his tests. Nurse confirmed patient had been seen by neuro and patient had EEG completed on 11/15. Results still showing metabolic encephalopathy. Family visited until about 2100 and went home.
[2021-11-19] VITALS: BP_SYST 112
[2021-11-19] MEDS: IPRATROPIUM/ALBUTEROL SULFATE 3 ML AMPUL.NEB (DUONEB) INH SCH ×6 (01:25→23:35)
--- NOTE | 2021-11-19 07:30 | NUR ---
OPENING NOTES: PATIENT IS RESTING IN BED QUIETLY. LETHARGIC, NONVERBAL, ONLY WITHDRAW TO PAIN. OPEN EYES TO TACTILE STIMULI. NO ADDITIONAL PAIN OR DISTRESS NOTED AT THIS TIME. EXPLAINED POC BUT PATIENT DOES NOT SEEM TO COMPREHEND WHAT IS BEING SAID DUE TO COGNITIVE STATUS. R NGT INFUSING NEPHRO AT 40CC/HR AT GOAL. NO RESIDUAL NOTED. PLACEMENT CHECKED. IV TO LW AND LAC INTACT AND PATENT W/ IVF INFUSING. BED IN LOW AND LOCK POSITION. BED ALARM ON. CALL LIGHT AND BEDSIDE TABLE WITHIN REACH. STABLE CONDITION.
[2021-11-19 08:00] VITALS: BP_SYST 103
--- NOTE | 2021-11-19 08:00 | NUR ---
Changed O2 device to 3L/M NC, O2 saturation 96%. Addendum: 11/19/21 at 0842 by Kenna Leo RT Amended: Links added.
[2021-11-19] MEDS: ERGOCALCIFEROL 8000 UNITS/ML ORAL SOLUTION, 60 ML BOTTLE GT SCH (09:00)
[2021-11-19] MEDS: metroNIDAZOLE 500 mg/NS 100 ML IV SCH ×2 (09:00→21:08)
[2021-11-19] MEDS: POTASSIUM CHLORIDE 20 MEQ/PKT PACKET PO SCH (09:00)
[2021-11-19] MEDS: PANTOPRAZOLE SODIUM 40 MG/VIAL (PROTONIX) IVP SCH (09:00)
[2021-11-19] MEDS: FLUCONAZOLE 200 mg/ NS 100 ML IV SCH (11:17)
--- NOTE | 2021-11-19 11:30 | NUR ---
WOUND CARE: CLEANSE COCCYX UNSTAGEABLE WOUND (ESCHAR) WITH NS, PADDED DRY WITH STERILE GAUZE, APPLIED BARRIER CREAM AROUND WOUND, AND COVER WITH OPTIFOAM. COVERED POSTERIOR TRUCK (DTI) LIAN PENA Addendum: 11/19/21 at 2018 by Seventy [employer] RegistryPOLI RN COVERED POSTERIOR TRUCK (DTI) WITH OPTIFOAM.
[2021-11-19] MEDS: CEFEPIME 1 GM in D5W 50 ML IV SCH ×2 (12:57→22:53)
[2021-11-19] MEDS: KCL 20 mEq in D5W 1000 mL 1,000 ML IV SCH (12:59)
[2021-11-19] MEDS: INSULIN REGULAR, HUMAN 100 UNITS/ML, 10 ML VIAL (humuLIN R) SUBCUT PRN ×3 (13:03→23:42)
--- NOTE | 2021-11-19 16:11 | NUR ---
Discharge Planning: DCP arranged trans port with [facility] 8:30pm to [facility] [phone] Rm [phone]. DCP made CM and nurse aware and pt packet taken to nurse station. Disposition 03
[2021-11-19 16:52] VITALS: BP_SYST 113
--- NOTE | 2021-11-19 17:00 | NUR ---
GAVE SBAR REPORT TO SNF: GAVE SBAR REPORT TO JACQUES ASHTON FROM [facility]. ETA FOR [facility] SUSTAIN ENGINEER AT 2030 TONIGHT. PATIENT WILL BE GETTING THE SAME MEDICATION FROM THE HOSPITAL. WILL ALSO CONTINUE WITH NGT FEEDING AND IV ABT.
[2021-11-19 17:49] VITALS: BP_SYST 113
--- NOTE | 2021-11-19 18:30 | NUR ---
CLOSING NOTES: PATIENT IS RESTING IN BED QUIETLY, ASLEEP. NO ADDITIONAL DISTRESS OR PAIN NOTED AT THIS TIME. STABLE CONDITION.
--- NOTE | 2021-11-19 19:15 | NUR ---
OPENING NOTE REPORT RECEIVED FROM DAYSHIFT NURSE. PATIENT RECEIVED LYING IN BED, EYES CLOSED, RESTING. NO S/S OF ACUTE DISTRESS. BREATHING EVEN AND UNLABORED, HOB RAISED, NASAL CANULA ATTACHED PROPERLY, ON 2L OF OXYGE. NGT ATTACHED, SECURED, TUBE FEEDING INFUSING WELL. IVF INFUSING WELL, IV SITES PATENT, NO SIGNS OF INFILTRATION OR INFECTION NOTED. SKIN WARM AND DRY TO TOUCH, NO SIGNS OF HYPOGLYCEMIA NOTED. BED ALARM ON. BED IS LOCKED AND AT LOWEST POSITION. WILL CONTINUE TO MONITOR.
[2021-11-19 20:00] VITALS: BP_SYST 120
--- NOTE | 2021-11-19 20:30 | NUR ---
AMBULANCE DELAY GOLD FROM [facility] INFORMED RN THEY ARE UNABLE TO PICK PATIENT UP TONIGHT, RESCHEDULED FOR 0930 TOMORROW MORNING.
--- NOTE | 2021-11-19 22:00 | NUR ---
SPOKE TO DAUGHTER/CALLED DR TELLES INFORMED PATIENT'S DAUGHTER, KELLI, THAT FAMILY DEVELOPMENT EXTENSION SPECIALIST WAS CANCELLED FOR TONIGHT AND PATIENT WILL BE PICKED UP TOMORROW MORNING AT 0930. KELLI STATED " THAT IS FINE" . DR TELLES MADE AWARE THAT AMBULANCE CANNOT PICK PATIENT UP TONIGHT AND RESCHEDULED FOR THE MORNING AT 0930, ORDERED TO HOLD DC FOR TONIGHT AND FOR DC IN AM.
[2021-11-20] VITALS: BP_SYST 118
--- NOTE | 2021-11-20 03:30 | NUR ---
INCONTINENT CARE PATIENT CLEANED BY RN AND STUDENT NURSE AT THIS TIME. PATIENT TOLERATED WELL. ALL NEEDS MET. WILL CONTINUE TO MONITOR.
[2021-11-20] MEDS: IPRATROPIUM/ALBUTEROL SULFATE 3 ML AMPUL.NEB (DUONEB) INH SCH ×2 (03:44→07:16)
--- NOTE | 2021-11-20 06:42 | NUR ---
CLOSING NOTE PATIENT IN BED, EYES CLOSED, RESTING WELL. NO S/S OF ACUTE DISTRESS NOTED. BREATHING EVEN AND UNLABORED. HOB RAISED. NASAL CANULA ATTACHED PROPERLY, ON 2L OF OXYGEN. NGT ATTACHED, SECURED, TUBE FEEDING INFUSING WELL. IV SITE PATENT, NO SIGNS OF INFILTRATION OR INFECTION NOTED. SKIN WARM AND DRY TO TOUCH, NO S/S OF HYPOGLYCEMIA NOTED. ALL NEEDS MET THROUGHOUT SHIFT. FALL, SAFETY PRECAUTIONS MAINTAINED THROUGHOUT SHIFT. WILL CONTINUE TO MONITOR UNTIL PATIENT CARE IS ENDORSED TO ONCOMING DAYSHIFT NURSE.
[2021-11-20 07:48] VITALS: BP_SYST 127
[2021-11-20] MEDS: KCL 20 mEq in D5W 1000 mL 1,000 ML IV SCH (08:06)
[2021-11-20] MEDS: metroNIDAZOLE 500 mg/NS 100 ML IV SCH (08:20)
[2021-11-20] MEDS: PANTOPRAZOLE SODIUM 40 MG/VIAL (PROTONIX) IVP SCH (08:20)
[2021-11-20] MEDS: ERGOCALCIFEROL 8000 UNITS/ML ORAL SOLUTION, 60 ML BOTTLE GT SCH (08:20)
[2021-11-20] MEDS: POTASSIUM CHLORIDE 20 MEQ/PKT PACKET PO SCH (08:21)
--- NOTE | 2021-11-20 09:56 | NUR ---
SNF TRANSFER: REPORT GIVEN TO NURSE STEWART , PT WILL BE UNDER THE CARE OF DR COOMBS.
--- NOTE | 2021-11-20 10:07 | NUR ---
CREDIT SPECIALIST contacted [facility] regarding delayed ambulance mushroom picker from last night. CREDIT SPECIALIST was informed that ambulance is in route for transportation from [facility] to [facility]. Family was previously advised of delay and AM transfer last night.
--- NOTE | 2021-11-20 10:45 | NUR ---
D/C Patient PT DISCHARGED TO [facility]. REPORT GIVEN TO NURSE PAT, ADMIT MD WILL BE DR COMOBS. IV ACCESS KEPT AND NEW NGT INSERTED AND PLACEMENT VERIFIED BY XR. DAUGHTER IN LAW MADE AWARE. Addendum: 11/20/21 at 1134 by Dustin Topete RN DISCHARGE PACKET AND ALL PT'S BELONGINGS AT BEDSIDE SENT WITH PATIENT.
== END 2021-11-20 18:27 | DRG 871 ==
LOC: SED 11:29 → SIC 13:50 → STU 11-11 19:47
PROVIDERS: ADMIT Internal Medicine; ATTEND Internal Medicine
PROC: 4A10X4Z Monitoring of Central Nervous Electrical Activity, External Approach (ICD-10-PCS; principal; 2021-11-15)
DX: A41.9 Sepsis, unspecified organism (principal); E43 Unspecified severe protein-calorie malnutrition; J69.0 Pneumonitis due to inhalation of food and vomit; J96.01 Acute respiratory failure with hypoxia; R57.1 Hypovolemic shock; R65.21 Severe sepsis with septic shock; N17.0 Acute kidney failure with tubular necrosis; G92.8 Other toxic encephalopathy; I24.8 Other forms of acute ischemic heart disease; N39.0 Urinary tract infection, site not specified; Z66 Do not resuscitate; D63.8 Anemia in other chronic diseases classified elsewhere; E88.09 Other disorders of plasma-protein metabolism, not elsewhere classified; G20 Parkinson's disease; F02.80 Dementia in other diseases classified elsewhere, unspecified severity, without behavioral disturbance, psychotic disturbance, mood disturbance, and anxiety; N40.0 Benign prostatic hyperplasia without lower urinary tract symptoms; E78.5 Hyperlipidemia, unspecified; E86.0 Dehydration; D69.6 Thrombocytopenia, unspecified; E87.6 Hypokalemia; E83.51 Hypocalcemia; Z20.822 Contact with and (suspected) exposure to COVID-19; I12.9 Hypertensive chronic kidney disease with stage 1 through stage 4 chronic kidney disease, or unspecified chronic kidney disease; E11.22 Type 2 diabetes mellitus with diabetic chronic kidney disease; N18.9 Chronic kidney disease, unspecified; L89.152 Pressure ulcer of sacral region, stage 2; Z88.8 Allergy status to other drugs, medicaments and biological substances; Z79.899 Other long term (current) drug therapy; Z93.1 Gastrostomy status; Z74.01 Bed confinement status; Z51.5 Encounter for palliative care; Z68.21 Body mass index [BMI] 21.0-21.9, adult
CPT/HCPCS: 36415; 70450-TC; 71045; 76376; 80048; 80053; 80061; 81000; 82009; 82040; 82140; 82550; 82803-TC; 82962; 83605; 83735; 83880; 84100; 84443; 84484; 85025; 85610-TC; 85730-TC; 86140; 87040; 87081; 87086; 93005; 93306; 94640; 94760; 95816; 96361; 96365; 99291; C9113; G0378; G0480; G0481; G0482; J0692; J1450; J1815; J2543; J3370; J3480; J3490; J7050; J7060; P9046

== ENCOUNTER 2021-11-29 14:25 | Emergency (ER) | payer OTHER ==
[~2021-11-29] VITALS: Ht 185.4 cm; Wt 70.3 kg
--- NOTE | 2021-11-29 14:30 | NUR ---
Patient to ER bed AMB1 to gown for evaluation. Side rails up.
--- NOTE | 2021-11-29 14:35 | NUR ---
ER at bedside examining patient.
--- NOTE | 2021-11-29 14:59 | NUR ---
Patient given written and verbal discharge instructions and verbalizes understanding. ER MD discussed with patient the results and treatment provided. Patient in stable condition. ID arm band removed. NO Rx of given. Patient educated on pain management and to follow up with PMD. Pain Scale 0. Opportunity for questions provided and answered. Medication side effect fact sheet provided.
[2021-11-29] MEDS ORDERED: GASTROGRAFIN 120 ML ONE (15:02)
== END 2021-11-29 14:59 | disposition home or self-care (01) ==
LOC: SED 14:25
DX: Z43.1 Encounter for attention to gastrostomy (principal); E11.9 Type 2 diabetes mellitus without complications; I10 Essential (primary) hypertension; Z88.8 Allergy status to other drugs, medicaments and biological substances; Z79.899 Other long term (current) drug therapy
CPT/HCPCS: 99284; 74018; Q9963